=== PATIENT | male | born 1960 | race Caucasian/White ===

== ENCOUNTER 2016-07-02 19:52 | Emergency (ER) | payer OTHER ==
--- NOTE | 2016-07-02 22:51 | ED CLINICAL REPORT ---
Clinical Report - Physicians/Mid Levels [facility] [address] [address] 07/02/2016 19:52 Patient: MIKEY WATT Time Seen: 19:55. Arrived- By ambulance. Historian- patient and EMS personnel. HISTORY OF PRESENT ILLNESS Chief Complaint: CHANGED MENTAL STATUS. The patient has been confused. This started today and is still present. It was gradual in onset. The patient has had alcohol consumption recently. No recent drug use. No weakness or recent fall. He has had difficulty walking (noted to be "staggering"). Usually is alert and oriented X3 and usually has normal mobility. (Pt was brought in by EMS. Pt was found outside of [facility] in a sleeping bag. Pt was intoxicated, whiskey and vodka. Pt is homeless. EMS brought him in because he couldnt stand up. Pt is very dirty. Pt has no medical complaints. Pt is disoriented to time. Pt was in [facility] last night because he was drunk). Similar symptoms previously: Recent medical care: The patient was seen recently at another facility in the emergency department. Diagnosis: intoxication. ( at [facility] last night). REVIEW OF SYSTEMS No fever, headache, head injury, dizziness or chest pain. No difficulty breathing, sputum production, sore throat, abdominal pain or nausea. No diarrhea, black stools, difficulty with urination, vomiting or bloody stools. The patient has had a mild cough. He has had moderate back pain. It has been similar to previous symptoms. PAST HISTORY ( PCP: [facility] Problems: Depression. PTSD. Schizophrenia. Asthma. Prior rib fracture Hypertension Dental problems Alcoholism / Alcohol intoxication Chronic back pain Surgeries: Carpal Tunnel Surgery. Right foot repair). SOCIAL HISTORY Heavy alcohol use. Patient is a longstanding alcoholic. Under the influence in E.D. He is homeless. ADDITIONAL NOTES The nursing notes have been reviewed. PHYSICAL EXAM Vital Signs: 07/02/2016 19:58 BP: 125/58. HR: 119. RR: 24. O2 saturation: 99%. Temp: 98.3 F. Appearance: Lethargic. The patient's speech is slurred and odor of alcohol is present. Head: Head atraumatic. ENT: Normal ENT inspection. Airway intact. Moist mucous membranes. Pharynx normal. Neck: Normal inspection. Neck supple. CVS: Tachycardia. Heart sounds normal. Pulses normal. Respiratory: No respiratory distress. Breath sounds normal. Abdomen: Soft. Mild tenderness in the upper abdomen and left side of the abdomen. No guarding or rebound tenderness. Back: Normal inspection. Skin: Skin warm and dry. Extremities: Extremities exhibit normal ROM. No calf tenderness. Neuro: Alert. Oriented X 3. No motor deficit. No sensory deficit. LABS, X-RAYS, AND EKG Laboratory Tests: UA-Culture if indicated: (CIRA: 07/02/2016 22:15) ( MsgRcvd 07/02/2016 22:31) Final results Test Result Flag Units (Reference) URINE COLOR YELLOW URINE APPEARANCE CLEAR URINE GLUCOSE NEGATIVE (NEGATIVE) URINE BILIRUBIN NEGATIVE (NEGATIVE) URINE KETONE NEGATIVE (NEGATIVE) URINE SPECIFIC GRAVITY 1.015 (1.010-1.030) URINE PH 6.5 (5.0-8.0) URINE PROTEIN TRACE (NEGATIVE) URINE UROBILINOGEN 0.2 EU/dL (0.2-1.0) URINE NITRITE NEGATIVE (NEGATIVE) URINE BLOOD NEGATIVE (NEGATIVE) URINE LEUK ESTERASE NEGATIVE (NEGATIVE) URINE RBC NONE SEEN rbc/hpf (0-1) URINE WBC NONE SEEN wbc/hpf (0-1) URINE EPITHELIAL CELLS 0-1 EPI/hpf (0-5) URINE BACTERIA NONE SEEN (NONE SEEN) URINE COMMENT CULT NOT INDICATED URINE CULTURES ARE SET-UP BASED ON THE FOLLOWING CRITERIA:POSITIVE NITRITEPOSITIVE LEUKOCYTE ESTERASEGREATER THAN 10 WHITE BLOOD CELLSMODERATE (2+) OR GREATER BACTERIA PT with INR: (CIRA: 07/02/2016 20:29) ( MsgRcvd 07/02/2016 20:57) Final results Test Result Flag Units (Reference) INR 1.0 (0.8-1.2) Low Intensity Therapy: INR 1.5-2.0 PT range 18.5-23.1Mod.Intensity Therapy: INR 2.0-3.0 PT range 23.1-31.5High Intensity Therapy: INR 2.5-3.5 PT range 27.4-35.5High Intensity Therapy 2: INR 3.0-4.0 PT range 31.5-39.3 CMP: (CIRA: 07/02/2016 20:43) ( MsgRcvd 07/02/2016 22:48) Final results Test Result Flag Units (Reference) GLUCOSE 137 H mg/dL (70-110) BUN 6 L mg/dL (7-18) CREATININE 0.7 mg/dL (0.6-1.3) Estimated GFR >60 mL/min Estimated GFR- >60 mL/min Note: Persistent reduction over 3 months in eGFR<60 mL/min/1.73 m2 defines CKD. Patients with eGFR values>=60 mL/min/1.73 m2 may also have CKD if evidence ofpersistent proteinuria. Additional information may be foundat www.kidney.org. SODIUM 144 mmol/L (136-145) POTASSIUM 3.8 mmol/L (3.5-5.1) CHLORIDE 104 mmol/L (98-107) CARBON DIOXIDE 26 mmol/L (21-32) CALCIUM 8.6 mg/dL (8.5-10.1) TOTAL PROTEIN 7.5 g/dL (6.4-8.2) ALBUMIN 3.5 g/dL (3.3-5.0) BILIRUBIN, TOTAL 0.6 mg/dL (0.0-1.0) ALKALINE PHOSPHATASE 181 H U/L (46-116) AST (SGOT) 278 H U/L (15-37) ALT (SGPT) 120 H U/L (12-78) Urine Drug Screen: (CIRA: 07/02/2016 22:15) ( MsgRcvd 07/02/2016 22:50) Final results Test Result Flag Units (Reference) AMPHETAMINE/METHAMPHETAMINE POSITIVE H (NEGATIVE) BARBITURATE NEGATIVE (NEGATIVE) BENZODIAZEPINE NEGATIVE (NEGATIVE) CANNABINOID POSITIVE H (NEGATIVE) COCAINE NEGATIVE (NEGATIVE) ECSTASY NEGATIVE (NEGATIVE) METHADONE NEGATIVE (NEGATIVE) OPIATE NEGATIVE (NEGATIVE) The urine drug screen is a qualitative screening test fordrug overdose and abuse. All screen results should beconsidered as presumptive.Drugs screened for are as follows:BenzodiazepinesCocaineAmphetamines/MetamphetaminesTHC (Tetrahydrocannabinol)OpiatesBarbituratesEcstasyMethadonePositive results are unconfirmed. For confirmation, notifythe lab for the specimen to be sent to the reference lab.All confirmations must be performed by a differentmethodology.The ingestion of natural herbal and plant productscontaining Ephedra/Ephedra metabolites can produce in urineone or more substances capable of cross reacting withamphetamine/methamphetamine immunoassays. These testsprovide a preliminary result only. A more specificalternative chemical method must be used to obtain aconfirmed analytical result. BNP: (CIRA: 07/02/2016 20:29) ( IlgRcvd 07/02/2016 21:08) Final results Test Result Flag Units (Reference) B-TYPE NATRIURETIC PEPTIDE < 5.0 L pg/ml (5-100) Lipase: (CIRA: 07/02/2016 20:29) ( IlgRcvd 07/02/2016 21:38) Final results Test Result Flag Units (Reference) LIPASE 353 U/L (73-393) AMYLASE 37 U/L (25-115) ETHYL ALCOHOL 355 H mg/dL (3-10) THYROID STIMULATING HORMONE 3.481 uIU/mL (0.34-3.74) . Pulse Oximetry: 07/02/2016 19:58 O2 saturation: 99%. (FIO2 - room air). Interpretation: normal. PROGRESS AND PROCEDURES Course of Care: 07/02/2016 22:11 BP: 110/55. HR: 76. RR: 16. O2 saturation: 99%. Vital Signs: have been reviewed. Hypotensive. Heart rate normal. Respiratory rate normal. Oxygen saturation normal. Patient/family counseled. Old ED records reviewed. Patient has had multiple ED visits. Disposition: Discharged in good and improved condition. Condition: good. CLINICAL IMPRESSION Abnormal liver function test: AST/SGOT, ALT/SGPT and alkaline phosphatase. Uncomplicated alcohol intoxication with alcohol dependence. INSTRUCTIONS No alcohol. Seek medical help to quit drinking. Follow-up: Screening today revealed the patient's blood pressure to be in the normal range. Follow-up with: [facility], , , [address], , [place], [address] Follow up in about four days. Call for an appointment. (Electronically signed by Manuel Rodriguez Dr. 07/03/2016 4:26) Addenda whit MIKEY WATT VisitID: [id number] Date: 07/02/2016 07/03/2016 2:02 Breathalizer 0.198 at discharge, pt waiting in room for first bus (Electronically signed by Prateek Piper R.N. 07/03/2016 2:02)
--- NOTE | 2016-07-02 22:51 | ED CLINICAL REPORT ---
Clinical Report - Physicians/Mid Levels [facility] [address] [place] [address] 07/02/2016 19:52 Patient: MIKEY WATT Time Seen: 19:55. Arrived- By ambulance. Historian- patient and EMS personnel. HISTORY OF PRESENT ILLNESS Chief Complaint: CHANGED MENTAL STATUS. The patient has been confused. This started today and is still present. It was gradual in onset. The patient has had alcohol consumption recently. No recent drug use. No weakness or recent fall. He has had difficulty walking (noted to be "staggering"). Usually is alert and oriented X3 and usually has normal mobility. (Pt was brought in by EMS. Pt was found outside of [facility] in a sleeping bag. Pt was intoxicated, whiskey and vodka. Pt is homeless. EMS brought him in because he couldnt stand up. Pt is very dirty. Pt has no medical complaints. Pt is disoriented to time. Pt was in [facility] last night because he was drunk). Similar symptoms previously: Recent medical care: The patient was seen recently at another facility in the emergency department. Diagnosis: intoxication. ( at [facility] last night). REVIEW OF SYSTEMS No fever, headache, head injury, dizziness or chest pain. No difficulty breathing, sputum production, sore throat, abdominal pain or nausea. No diarrhea, black stools, difficulty with urination, vomiting or bloody stools. The patient has had a mild cough. He has had moderate back pain. It has been similar to previous symptoms. PAST HISTORY ( PCP: [facility] Problems: Depression. PTSD. Schizophrenia. Asthma. Prior rib fracture Hypertension Dental problems Alcoholism / Alcohol intoxication Chronic back pain Surgeries: Carpal Tunnel Surgery. Right foot repair). SOCIAL HISTORY Heavy alcohol use. Patient is a longstanding alcoholic. Under the influence in E.D. He is homeless. ADDITIONAL NOTES The nursing notes have been reviewed. PHYSICAL EXAM Vital Signs: 07/02/2016 19:58 BP: 125/58. HR: 119. RR: 24. O2 saturation: 99%. Temp: 98.3 F. Appearance: Lethargic. The patient's speech is slurred and odor of alcohol is present. Head: Head atraumatic. ENT: Normal ENT inspection. Airway intact. Moist mucous membranes. Pharynx normal. Neck: Normal inspection. Neck supple. CVS: Tachycardia. Heart sounds normal. Pulses normal. Respiratory: No respiratory distress. Breath sounds normal. Abdomen: Soft. Mild tenderness in the upper abdomen and left side of the abdomen. No guarding or rebound tenderness. Back: Normal inspection. Skin: Skin warm and dry. Extremities: Extremities exhibit normal ROM. No calf tenderness. Neuro: Alert. Oriented X 3. No motor deficit. No sensory deficit. LABS, X-RAYS, AND EKG Laboratory Tests: UA-Culture if indicated: (CIRA: 07/02/2016 22:15) ( MsgRcvd 07/02/2016 22:31) Final results Test Result Flag Units (Reference) URINE COLOR YELLOW URINE APPEARANCE CLEAR URINE GLUCOSE NEGATIVE (NEGATIVE) URINE BILIRUBIN NEGATIVE (NEGATIVE) URINE KETONE NEGATIVE (NEGATIVE) URINE SPECIFIC GRAVITY 1.015 (1.010-1.030) URINE PH 6.5 (5.0-8.0) URINE PROTEIN TRACE (NEGATIVE) URINE UROBILINOGEN 0.2 EU/dL (0.2-1.0) URINE NITRITE NEGATIVE (NEGATIVE) URINE BLOOD NEGATIVE (NEGATIVE) URINE LEUK ESTERASE NEGATIVE (NEGATIVE) URINE RBC NONE SEEN rbc/hpf (0-1) URINE WBC NONE SEEN wbc/hpf (0-1) URINE EPITHELIAL CELLS 0-1 EPI/hpf (0-5) URINE BACTERIA NONE SEEN (NONE SEEN) URINE COMMENT CULT NOT INDICATED URINE CULTURES ARE SET-UP BASED ON THE FOLLOWING CRITERIA:POSITIVE NITRITEPOSITIVE LEUKOCYTE ESTERASEGREATER THAN 10 WHITE BLOOD CELLSMODERATE (2+) OR GREATER BACTERIA PT with INR: (CIRA: 07/02/2016 20:29) ( MsgRcvd 07/02/2016 20:57) Final results Test Result Flag Units (Reference) INR 1.0 (0.8-1.2) Low Intensity Therapy: INR 1.5-2.0 PT range 18.5-23.1Mod.Intensity Therapy: INR 2.0-3.0 PT range 23.1-31.5High Intensity Therapy: INR 2.5-3.5 PT range 27.4-35.5High Intensity Therapy 2: INR 3.0-4.0 PT range 31.5-39.3 CMP: (CIRA: 07/02/2016 20:43) ( MsgRcvd 07/02/2016 22:48) Final results Test Result Flag Units (Reference) GLUCOSE 137 H mg/dL (70-110) BUN 6 L mg/dL (7-18) CREATININE 0.7 mg/dL (0.6-1.3) Estimated GFR >60 mL/min Estimated GFR- >60 mL/min Note: Persistent reduction over 3 months in eGFR<60 mL/min/1.73 m2 defines CKD. Patients with eGFR values>=60 mL/min/1.73 m2 may also have CKD if evidence ofpersistent proteinuria. Additional information may be foundat [email or web address].org. SODIUM 144 mmol/L (136-145) POTASSIUM 3.8 mmol/L (3.5-5.1) CHLORIDE 104 mmol/L (98-107) CARBON DIOXIDE 26 mmol/L (21-32) CALCIUM 8.6 mg/dL (8.5-10.1) TOTAL PROTEIN 7.5 g/dL (6.4-8.2) ALBUMIN 3.5 g/dL (3.3-5.0) BILIRUBIN, TOTAL 0.6 mg/dL (0.0-1.0) ALKALINE PHOSPHATASE 181 H U/L (46-116) AST (SGOT) 278 H U/L (15-37) ALT (SGPT) 120 H U/L (12-78) Urine Drug Screen: (CIRA: 07/02/2016 22:15) ( MsgRcvd 07/02/2016 22:50) Final results Test Result Flag Units (Reference) AMPHETAMINE/METHAMPHETAMINE POSITIVE H (NEGATIVE) BARBITURATE NEGATIVE (NEGATIVE) BENZODIAZEPINE NEGATIVE (NEGATIVE) CANNABINOID POSITIVE H (NEGATIVE) COCAINE NEGATIVE (NEGATIVE) ECSTASY NEGATIVE (NEGATIVE) METHADONE NEGATIVE (NEGATIVE) OPIATE NEGATIVE (NEGATIVE) The urine drug screen is a qualitative screening test fordrug overdose and abuse. All screen results should beconsidered as presumptive.Drugs screened for are as follows:BenzodiazepinesCocaineAmphetamines/MetamphetaminesTHC (Tetrahydrocannabinol)OpiatesBarbituratesEcstasyMethadonePositive results are unconfirmed. For confirmation, notifythe lab for the specimen to be sent to the reference lab.All confirmations must be performed by a differentmethodology.The ingestion of natural herbal and plant productscontaining Ephedra/Ephedra metabolites can produce in urineone or more substances capable of cross reacting withamphetamine/methamphetamine immunoassays. These testsprovide a preliminary result only. A more specificalternative chemical method must be used to obtain aconfirmed analytical result. BNP: (CIRA: 07/02/2016 20:29) ( IlgRcvd 07/02/2016 21:08) Final results Test Result Flag Units (Reference) B-TYPE NATRIURETIC PEPTIDE < 5.0 L pg/ml (5-100) Lipase: (CIRA: 07/02/2016 20:29) ( IlgRcvd 07/02/2016 21:38) Final results Test Result Flag Units (Reference) LIPASE 353 U/L (73-393) AMYLASE 37 U/L (25-115) ETHYL ALCOHOL 355 H mg/dL (3-10) THYROID STIMULATING HORMONE 3.481 uIU/mL (0.34-3.74) . Pulse Oximetry: 07/02/2016 19:58 O2 saturation: 99%. (FIO2 - room air). Interpretation: normal. PROGRESS AND PROCEDURES Course of Care: 07/02/2016 22:11 BP: 110/55. HR: 76. RR: 16. O2 saturation: 99%. Vital Signs: have been reviewed. Hypotensive. Heart rate normal. Respiratory rate normal. Oxygen saturation normal. Patient/family counseled. Old ED records reviewed. Patient has had multiple ED visits. Disposition: Discharged in good and improved condition. Condition: good. CLINICAL IMPRESSION Abnormal liver function test: AST/SGOT, ALT/SGPT and alkaline phosphatase. Uncomplicated alcohol intoxication with alcohol dependence. INSTRUCTIONS No alcohol. Seek medical help to quit drinking. Follow-up: Screening today revealed the patient's blood pressure to be in the normal range. Follow-up with: [facility], , , [address], , [place], [address] Follow up in about four days. Call for an appointment. (Electronically signed by Manuel Rodriguez Dr. 07/03/2016 4:26) Addenda whit MIKEY WATT VisitID: [id number] Date: 07/02/2016 07/03/2016 2:02 Breathalizer 0.198 at discharge, pt waiting in room for first bus (Electronically signed by Prateek Piper R.N. 07/03/2016 2:02)
--- NOTE | 2016-07-02 22:52 | ED ORDER SUMMARY ---
..... Patient: MIKEY WATT OrderSheet [facility] VisitID: [id number] [address] [place] [address] 55y, M Registration Date/Time: 07/02/2016 ORDER SHEET Weight: 99.7 kg (estimated) Allergies: Penicillins GENERAL ORDERS: Tile Inspector (Continuous) (20:18 07/02/2016 PHutchinson DO) (Ack 20:23 LMuller) (21:33 LMuller) Urine Drug Screen Urgent (20:18 07/02/2016 PHutchinson DO) (Ack 20:23 LMuller) (22:18 LMuller) (22:18 DBeyer R.N.) PT with INR Urgent (20:18 07/02/2016 PHutchinson DO) (Ack 20:23 LMuller) (20:31 TLewis R.N.) UA-Culture if indicated Urgent (20:18 07/02/2016 PHutchinson DO) (Ack 20:23 LMuller) (22:18 LMuller) (22:18 DBeyer R.N.) Amylase Urgent (20:18 07/02/2016 PHutchinson DO) (Ack 20:23 LMuller) (20:31 TLewis R.N.) Lipase Urgent (20:18 07/02/2016 PHutchinson DO) (Ack 20:23 LMuller) (20:31 TLewis R.N.) BNP Urgent (20:18 07/02/2016 PHutchinson DO) (Ack 20:23 LMuller) (20:31 TLewis R.N.) Ethyl Alcohol Urgent (20:18 07/02/2016 PHutchinson DO) (Ack 20:23 LMuller) (20:31 TLewis R.N.) TSH Urgent (20:18 07/02/2016 PHutchinson DO) (Ack 20:23 LMuller) (20:31 TLewis R.N.) POC Glucose (20:18 07/02/2016 PHutchinson DO) (Ack 20:23 LMuller) (21:02 DBeyer R.N.) Breathalyzer (20:19 07/02/2016 [facility]) (Ack 20:23 LMuller) (20:23 LMuller) CBC w Diff Urgent (22:28 07/02/2016 [facility]) (Ack 22:31 SBaldwin) (23:00 SBaldwin) CMP Urgent (22:28 07/02/2016 [facility]) (Ack 22:31 SBaldwin) (23:00 SBaldwin) MEDICATION ORDERS: IV FLUIDS: IV NS with Normal Saline 1 Liter, Folic Acid 1 mg/L, Multivitamin Concentrate Intravenous 1 amp/L, Thiamine HCl 100 mg/L: initial bolus 1000 mL (1000 mL/hr), then 125 mL/hr (NOW) (20:18 07/02/2016 [facility]) (20:47 Chris Graves) ORDER SHEET NOTES: [Electronically signed by Prateek Piper R.N. (01:34 07/03/2016)] [Electronically signed by Manuel Rodriguez Dr. (04:26 07/03/2016)] [Electronically locked/signed by Prateek Piper R.N. (01:34 07/03/2016)]
--- NOTE | 2016-07-02 22:52 | ED ORDER SUMMARY ---
..... Patient: MIKEY WATT OrderSheet [facility] VisitID: [id number] [address] [place] [address] 55y, M Registration Date/Time: 07/02/2016 ORDER SHEET Weight: 99.7 kg (estimated) Allergies: Penicillins GENERAL ORDERS: Building Manager (Continuous) (20:18 07/02/2016 PHutchinson DO) (Ack 20:23 LMuller) (21:33 LMuller) Urine Drug Screen Urgent (20:18 07/02/2016 PHutchinson DO) (Ack 20:23 LMuller) (22:18 LMuller) (22:18 DBeyer R.N.) PT with INR Urgent (20:18 07/02/2016 PHutchinson DO) (Ack 20:23 LMuller) (20:31 TLewis R.N.) UA-Culture if indicated Urgent (20:18 07/02/2016 PHutchinson DO) (Ack 20:23 LMuller) (22:18 LMuller) (22:18 DBeyer R.N.) Amylase Urgent (20:18 07/02/2016 PHutchinson DO) (Ack 20:23 LMuller) (20:31 TLewis R.N.) Lipase Urgent (20:18 07/02/2016 PHutchinson DO) (Ack 20:23 LMuller) (20:31 TLewis R.N.) BNP Urgent (20:18 07/02/2016 PHutchinson DO) (Ack 20:23 LMuller) (20:31 TLewis R.N.) Ethyl Alcohol Urgent (20:18 07/02/2016 PHutchinson DO) (Ack 20:23 LMuller) (20:31 TLewis R.N.) TSH Urgent (20:18 07/02/2016 PHutchinson DO) (Ack 20:23 LMuller) (20:31 TLewis R.N.) POC Glucose (20:18 07/02/2016 PHutchinson DO) (Ack 20:23 LMuller) (21:02 DBeyer R.N.) Breathalyzer (20:19 07/02/2016 [facility]) (Ack 20:23 LMuller) (20:23 LMuller) CBC w Diff Urgent (22:28 [facility]02[facility]2016 [facility] (Ack 22:31 SBaldwin) (23:00 SBaldwin) CMP Urgent (22:28 07/02/2016 [facility]) (Ack 22:31 SBaldwin) (23:00 SBaldwin) MEDICATION ORDERS: IV FLUIDS: IV NS with Normal Saline 1 Liter, Folic Acid 1 mg/L, Multivitamin Concentrate Intravenous 1 amp/L, Thiamine HCl 100 mg/L: initial bolus 1000 mL (1000 mL/hr), then 125 mL/hr (NOW) (20:18 07/02/2016 [facility]) (20:47 Chris Graves) ORDER SHEET NOTES: [Electronically signed by Prateek Piper R.N. (01:34 07/03/2016)] [Electronically signed by Manuel Rodriguez Dr. (04:26 07/03/2016)] [Electronically locked/signed by Prateek Piper R.N. (01:34 07/03/2016)]
--- NOTE | 2016-07-02 22:52 | ED NURSING NOTES ---
Clinical Report - Nurses [facility] [place] [address] 07/02/2016 19:52 Patient: MIKEY WATT TRIAGE Triage time 19:58. Acuity: LEVEL 3. Chief Complaint: (ETOH). ( Pt has been given warm blankets and placed in a gown.). --20:06 Phi Geller R.N. 19:58 07/02/16. BP: 125/58. HR: 119. RR: 24. O2 saturation: 99%. Temp: 98.3 F. Pain level now 0/10. --20:06 Phi Geller R.N. Weight: 99.7 kg estimated. Height/Length: 72 inches Estimated. BMI: 29.8. --20:01 Phi Geller R.N. Medications None. --20:02 Phi Geller R.N. Medication/allergy information source: the patient. --20:06 Phi Geller R.N. Allergies Penicillins. --20:01 Phi Geller R.N. History Arrived by EMS. Historian: patient. Unaccompanied. This started today. ( Pt was brought in by EMS. Pt was found outside of [facility] in a sleeping bag. Pt was intoxicated, whiskey and vodka. Pt is homeless. EMS brought him in because he couldnt stand up. Pt is very dirty. Pt has no medical complaints. Pt is disoriented to time. Pt was in [facility] last night because he was drunk.). Treatment [employer]: None. See EMS report. SOCIAL HX: Smoker- current status unknown (pt chews and swallows his tobacco). Heavy alcohol use; consumes a large amount of beer. Patient is a longstanding alcoholic. Patient smells of ETOH in the emergency department. No drug use. --20:06 Phi Geller R.N. PROBLEMS: Contusion. Laceration. Fall. Lifestyle / Substance Problems. Depression. PTSD. Schizophrenia. Asthma. Corneal Foreign Body. Immunizations. Alcoholism. Back Pain. Alcohol Intoxication. Hematoma. Dental Pain. Insect Bite(s). Tetanus Status. Hypertension. Anxiety Reaction. --20:04 Phi Geller R.N. Interventions ID band on patient. To treatment room. --20:06 Phi Geller R.N. PHYSICAL ASSESSMENT GENERAL / NEURO / PSYCH: Appears anxious. The patient is disoriented to time. HEENT: Pupils equal, round and reactive to light. No facial asymmetry noted. Mucous membranes are pink. RESPIRATORY: Respirations not labored. Chest nontender. Breath sounds within normal limits. CVS: Normal sinus rhythm noted. Capillary refill less than 2 seconds. Pulses within normal limits. GI / : Abdomen soft and nontender and normal bowel sounds. SKIN: Skin intact. Skin is warm and dry. Normal skin turgor. Large area of erythema with warmth to right buttock and left buttock. --20:07 Phi Geller R.N. NURSING PROGRESS NOTES ( DANG .258). --20:15 Prateek Piper R.N. 20:36 07/02/2016 Site #1 started via IV in the right hand with an 20g angiocath; one attempt. Blood drawn: rainbow set. Labeled in the presence of the patient. Saline lock flushed with saline. --20:37 Prateek Piper R.N. 20:47 07/02/2016 Started IV Fluids IV NS (Saline); at 1000 mL/hr over 1 hour(s) via site #1 via IV pump. Allergies verified and confirmed 5 rights. IV patency established. IV site checked: no pain, redness, or swelling. IV flushed thoroughly pre- and post-medication administration. --20:47 Phi Geller R.N. ( cbg 138). --21:02 Prateek Piper R.N. Finger stick glucose: 138 21:03 Jul 02 2016. --21:03 Prateek Piper R.N. ( Pt asleep in bed wakes to verbal stimuli). --21:25 Prateek Piper R.N. Call light placed in reach. ( Pt asleep in bed wakes to verbal stimuli.). --22:11 Prateek Piper R.N. 22:11 07/02/16. BP: 110/55. HR: 76. RR: 16. O2 saturation: 99%. Pain level now 0/10. --22:11 Prateek Piper R.N. ( Pt sleeping wakes to verbal stimuli no needs at this time, verbalized understanding of care.). --23:50 Prateek Piper R.N. 23:49 07/02/16. BP: 112/88. HR: 62. RR: 16. O2 saturation: 99%. Pain level now 0/10. --23:50 Prateek Piper R.N. DISPOSITION / DISCHARGE Departure time: 01:32 Jul 03 2016. Condition at departure: improved. Ability to learn limited by poor cooperation. Patient verbalized understanding. Written instructions provided in Cambodian. The patient was discharged by the physician. He was discharged home. He left the Emergency Department ambulatory. Patient driving. ( Pt verbalized understanding of discharge plan). --01:33 Prateek Piper R.N. 01:31 07/03/16. BP: 115/57. HR: 102. RR: 18. O2 saturation: 94%. Temp: 98.3 F. --01:33 Prateek Piper R.N. Locked/Released at 07/03/2016 1:34 by Prateek Piper R.N.
--- NOTE | 2016-07-02 22:52 | ED NURSING NOTES ---
Clinical Report - Nurses [facility] [place] [address] 07/02/2016 19:52 Patient: MIKEY WATT TRIAGE Triage time 19:58. Acuity: LEVEL 3. Chief Complaint: (ETOH). ( Pt has been given warm blankets and placed in a gown.). --20:06 Phi Geller R.N. 19:58 07/02/16. BP: 125/58. HR: 119. RR: 24. O2 saturation: 99%. Temp: 98.3 F. Pain level now 0/10. --20:06 Phi Geller R.N. Weight: 99.7 kg estimated. Height/Length: 72 inches Estimated. BMI: 29.8. --20:01 Phi Geller R.N. Medications None. --20:02 Phi Geller R.N. Medication/allergy information source: the patient. --20:06 Phi Geller R.N. Allergies Penicillins. --20:01 Phi Geller R.N. History Arrived by EMS. Historian: patient. Unaccompanied. This started today. ( Pt was brought in by EMS. Pt was found outside of [facility] in a sleeping bag. Pt was intoxicated, whiskey and vodka. Pt is homeless. EMS brought him in because he couldnt stand up. Pt is very dirty. Pt has no medical complaints. Pt is disoriented to time. Pt was in [facility] last night because he was drunk.). 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 See EMS report. SOCIAL HX: Smoker- current status unknown (pt chews and swallows his tobacco). Heavy alcohol use; consumes a large amount of beer. Patient is a longstanding alcoholic. Patient smells of ETOH in the emergency department. No drug use. --20:06 Phi Geller R.N. PROBLEMS: Contusion. Laceration. Fall. Lifestyle / Substance Problems. Depression. PTSD. Schizophrenia. Asthma. Corneal Foreign Body. Immunizations. Alcoholism. Back Pain. Alcohol Intoxication. Hematoma. Dental Pain. Insect Bite(s). Tetanus Status. Hypertension. Anxiety Reaction. --20:04 Phi Geller R.N. Interventions ID band on patient. To treatment room. --20:06 Phi Geller R.N. PHYSICAL ASSESSMENT GENERAL / NEURO / PSYCH: Appears anxious. The patient is disoriented to time. HEENT: Pupils equal, round and reactive to light. No facial asymmetry noted. Mucous membranes are pink. RESPIRATORY: Respirations not labored. Chest nontender. Breath sounds within normal limits. CVS: Normal sinus rhythm noted. Capillary refill less than 2 seconds. Pulses within normal limits. GI / : Abdomen soft and nontender and normal bowel sounds. SKIN: Skin intact. Skin is warm and dry. Normal skin turgor. Large area of erythema with warmth to right buttock and left buttock. --20:07 Phi Geller R.N. NURSING PROGRESS NOTES ( DANG .258). --20:15 Prateek Piper R.N. 20:36 07/02/2016 Site #1 started via IV in the right hand with an 20g angiocath; one attempt. Blood drawn: rainbow set. Labeled in the presence of the patient. Saline lock flushed with saline. --20:37 Prateek Piper R.N. 20:47 07/02/2016 Started IV Fluids IV NS (Saline); at 1000 mL/hr over 1 hour(s) via site #1 via IV pump. Allergies verified and confirmed 5 rights. IV patency established. IV site checked: no pain, redness, or swelling. IV flushed thoroughly pre- and post-medication administration. --20:47 Phi Geller R.N. ( cbg 138). --21:02 Prateek Piper R.N. Finger stick glucose: 138 21:03 Jul 02 2016. --21:03 Prateek Piper R.N. ( Pt asleep in bed wakes to verbal stimuli). --21:25 Prateek Piper R.N. Call light placed in reach. ( Pt asleep in bed wakes to verbal stimuli.). --22:11 Prateek Piper R.N. 22:11 07/02/16. BP: 110/55. HR: 76. RR: 16. O2 saturation: 99%. Pain level now 0/10. --22:11 Prateek Piper R.N. ( Pt sleeping wakes to verbal stimuli no needs at this time, verbalized understanding of care.). --23:50 Prateek Piper R.N. 23:49 07/02/16. BP: 112/88. HR: 62. RR: 16. O2 saturation: 99%. Pain level now 0/10. --23:50 Prateek Piper R.N. DISPOSITION / DISCHARGE Departure time: 01:32 Jul 03 2016. Condition at departure: improved. Ability to learn limited by poor cooperation. Patient verbalized understanding. Written instructions provided in Iranian. The patient was discharged by the physician. He was discharged home. He left the Emergency Department ambulatory. Patient driving. ( Pt verbalized understanding of discharge plan). --01:33 Prateek Piper R.N. 01:31 07/03/16. BP: 115/57. HR: 102. RR: 18. O2 saturation: 94%. Temp: 98.3 F. --01:33 Prateek Piper R.N. Locked/Released at 07/03/2016 1:34 by Prateek Piper R.N.
--- NOTE | 2016-07-03 04:26 | ED DISCHARGE INSTRUCTIONS ---
Patient: MIKEY WATT General Instructions [facility] VisitID: [id number] [address] [place] [address] 55y, M Registration Date/Time: 07/02/2016 Abnormal liver function test: AST/SGOT, ALT/SGPT and alkaline phosphatase. Uncomplicated alcohol intoxication with alcohol dependence. INSTRUCTIONS No alcohol. Seek medical help to quit drinking. Follow-up: Screening today revealed the patient's blood pressure to be in the normal range. Follow-up with: [facility], , , [address], , [place], [id number] Follow up in about four days. Call for an appointment. ADDITIONAL INFORMATION Cirrhosis Of The Liver The liver is located on the right side of your abdomen, just below the rib cage. The liver performs many essential functions including: Filters toxins from the blood Makes bile to aid digestion and absorption of vitamins from the GI tract Makes clotting factors that stop bleeding if you injure yourself Viral infections and toxins can cause permanent injury to the liver, called CIRRHOSIS. The most common cause of cirrhosis in the [place] is Hepatitis C and alcohol abuse. Other causes include Hepatitis B, medication side effects and others. The scarring that results from cirrhosis interferes with normal liver function and can cause many complications, including: Leakage of fluid from the blood vessels. This can cause pooling of fluid in the abdomen (ascites) or in the legs (edema). Inability of blood to form clots normally. This can lead to excess bleeding. Bleeding from blood vessels in the esophagus. This causes vomiting of blood or blood in the stool. Build-up of bile in the blood which causes a yellow color of the eyes and skin (jaundice). Build-up of toxins in the body which affect the brain and cause confusion. Treatment is aimed at taking care of the symptoms and preventing further liver damage. If your liver damage is from alcohol, quitting will slow the progress of the disease and may prevent further complications. If cirrhosis progresses and becomes life-threatening, liver transplant may be considered. If your liver damage is from Hepatitis B or C, treatments may be given to fight the virus. Home Care: Avoid medicines that can worsen liver damage such as acetaminophen (Tylenol). Your doctor will explain if any of the medicines you now take need to be changed. Talk to you doctor before taking mineral and vitamin supplements. Vitamin A, iron and copper can worsen liver damage. Severely limit alcohol use, or stop altogether. If you are alcoholic, seek professional help. Consider joining Alcoholics Anonymous for ongoing support. If you use IV drugs, you are at risk of Hepatitis B and C. Seek help to stop. The viruses that cause this kind of hepatitis are passed by blood or sexual contact with an infected person. It may even be possible to pass Hepatitis C by sharing straws to snort cocaine. Never share needles or other equipment. Follow Up with your doctor or as advised by our staff. Learn more about your disease and the availability of support groups for others with the same condition. Contact one of the following for more information: [place] [employer] www.liverfoundation.org 183-560-3984 Hepatitis Foundation International www.hepfi.org Get Prompt Medical Attention if any of the following occur: Rapid weight gain with increased size of your abdomen or leg swelling Increasing jaundice (yellow color of skin or eyes) Excess bleeding from cuts or injuries You have been given the following additional information: Cirrhosis (Electronically signed by Manuel Rodriguez Dr. 07/03/2016 4:26)
--- NOTE | 2016-07-03 04:26 | ED MED RECONCILIATION SUMMARY ---
Patient: MIKEY WATT Medication Reconciliation Report [facility] VisitID: [id number] [address] [place] [address] 55y, M Registration Date/Time: 07/02/2016 Weight: 99.7 kg Height/Length: 72 in. BMI: 29.8 ALLERGIES: Penicillins The patient's Home Medications are listed below: NONE. The source(s) of the original Home Medication information: patient The following Medications were given to the patient in the Emergency Department: IV NS IV Fluids bolus 0, then 1000 mL/hr, administered: 07/02/2016 8:47:00 PM The following Medications were prescribed to the patient: None.
--- NOTE | 2016-07-03 04:26 | ED MAR SUMMARY ---
..... Medication Administration Record [facility] [address] [place] [address] Patient: MIKEY WATT Visit ID: [id number] 55y, M Weight: 99.7 kg Height/Length: 72 in BMI: 29.8 ALLERGIES: Penicillins Start 20:47 07/02/2016 Phi Geller R.N. Medication Administered: IV NS (SALINE), Dose: IV Fluids over 1 hour(s), Rate: 1000 mL/hr, Site: #1 right hand. Medication Ordered: IV NS with Normal Saline 1 Liter, Folic Acid 1 mg/L, Multivitamin Concentrate Intravenous 1 amp/L, Thiamine HCl 100 mg/L: initial bolus 1000 mL (1000 mL/hr), then 125 mL/hr (NOW).
--- NOTE | 2016-07-03 04:26 | ED MED RECONCILIATION SUMMARY ---
Patient: MIKEY WATT Medication Reconciliation Report [facility] VisitID: [id number] [address] [place] [address] 55y, M Registration Date/Time: 07/02/2016 Weight: 99.7 kg Height/Length: 72 in. BMI: 29.8 ALLERGIES: Penicillins The patient's Home Medications are listed below: NONE. The source(s) of the original Home Medication information: patient The following Medications were given to the patient in the Emergency Department: IV NS IV Fluids bolus 0, then 1000 mL/hr, administered: 07/02/2016 8:47:00 PM The following Medications were prescribed to the patient: None.
--- NOTE | 2016-07-03 04:26 | ED MAR SUMMARY ---
..... Medication Administration Record [facility] [address] [place] [address] Patient: MIKEY WATT Visit ID: [id number] 55y, M Weight: 99.7 kg Height/Length: 72 in BMI: 29.8 ALLERGIES: Penicillins Start 20:47 07/02/2016 Phi Geller R.N. Medication Administered: IV NS (SALINE), Dose: IV Fluids over 1 hour(s), Rate: 1000 mL/hr, Site: #1 right hand. Medication Ordered: IV NS with Normal Saline 1 Liter, Folic Acid 1 mg/L, Multivitamin Concentrate Intravenous 1 amp/L, Thiamine HCl 100 mg/L: initial bolus 1000 mL (1000 mL/hr), then 125 mL/hr (NOW).
--- NOTE | 2016-07-03 04:26 | ED DISCHARGE INSTRUCTIONS ---
Patient: MIKEY WATT General Instructions [facility] VisitID: [id number] [address] [place] [address] 55y, M Registration Date/Time: 07/02/2016 Abnormal liver function test: AST/SGOT, ALT/SGPT and alkaline phosphatase. Uncomplicated alcohol intoxication with alcohol dependence. INSTRUCTIONS No alcohol. Seek medical help to quit drinking. Follow-up: Screening today revealed the patient's blood pressure to be in the normal range. Follow-up with: [facility], , , [address], , [place], [address] Follow up in about four days. Call for an appointment. ADDITIONAL INFORMATION Cirrhosis Of The Liver The liver is located on the right side of your abdomen, just below the rib cage. The liver performs many essential functions including: Filters toxins from the blood Makes bile to aid digestion and absorption of vitamins from the GI tract Makes clotting factors that stop bleeding if you injure yourself Viral infections and toxins can cause permanent injury to the liver, called CIRRHOSIS. The most common cause of cirrhosis in the [place] is Hepatitis C and alcohol abuse. Other causes include Hepatitis B, medication side effects and others. The scarring that results from cirrhosis interferes with normal liver function and can cause many complications, including: Leakage of fluid from the blood vessels. This can cause pooling of fluid in the abdomen (ascites) or in the legs (edema). Inability of blood to form clots normally. This can lead to excess bleeding. Bleeding from blood vessels in the esophagus. This causes vomiting of blood or blood in the stool. Build-up of bile in the blood which causes a yellow color of the eyes and skin (jaundice). Build-up of toxins in the body which affect the brain and cause confusion. Treatment is aimed at taking care of the symptoms and preventing further liver damage. If your liver damage is from alcohol, quitting will slow the progress of the disease and may prevent further complications. If cirrhosis progresses and becomes life-threatening, liver transplant may be considered. If your liver damage is from Hepatitis B or C, treatments may be given to fight the virus. Home Care: Avoid medicines that can worsen liver damage such as acetaminophen (Tylenol). Your doctor will explain if any of the medicines you now take need to be changed. Talk to you doctor before taking mineral and vitamin supplements. Vitamin A, iron and copper can worsen liver damage. Severely limit alcohol use, or stop altogether. If you are alcoholic, seek professional help. Consider joining Alcoholics Anonymous for ongoing support. If you use IV drugs, you are at risk of Hepatitis B and C. Seek help to stop. The viruses that cause this kind of hepatitis are passed by blood or sexual contact with an infected person. It may even be possible to pass Hepatitis C by sharing straws to snort cocaine. Never share needles or other equipment. Follow Up with your doctor or as advised by our staff. Learn more about your disease and the availability of support groups for others with the same condition. Contact one of the following for more information: [place] [employer] www.liverfoundation.org 228-155-6569 Hepatitis Foundation International www.hepfi.org Get Prompt Medical Attention if any of the following occur: Rapid weight gain with increased size of your abdomen or leg swelling Increasing jaundice (yellow color of skin or eyes) Excess bleeding from cuts or injuries You have been given the following additional information: Cirrhosis (Electronically signed by Manuel Rodriguez Dr. 07/03/2016 4:26)
== END 2016-07-03 01:30 | disposition home or self-care (01) ==
LOC: ED SRH 19:52
DX: R74.8 Abnormal levels of other serum enzymes (principal); F10.220 Alcohol dependence with intoxication, uncomplicated; Y90.8 Blood alcohol level of 240 mg/100 ml or more; Z59.0 Homelessness; I10 Essential (primary) hypertension
CPT/HCPCS: 90004; 90098; 90100; 91320; 92010; 92235; 92530; 92760; 92761; 92762; 92763; 92764; 92765; 92766; 92767; 93140; 94060; 95059

== ENCOUNTER 2016-11-08 17:48 | Emergency (ER) | payer OTHER ==
--- NOTE | 2016-11-08 18:55 | ED NURSING NOTES ---
Clinical Report - Nurses [facility] [place] [place] [address] 11/08/2016 17:48 Patient: MIKEY WATT TRIAGE Triage time 17:50 Jose Rafael 11 2016. Acuity: LEVEL 3. Chief Complaint: ABDOMINAL PAIN. Alert. MELANY COMA SCORE: Melany Coma Scale: 15- eyes open spontaneously (4); best verbal response- oriented x 4 (5); best motor response- obeys commands (6). --18:02 Nikhil Aj R.N. 17:52 11/08/16. BP: 126/64. HR: 110. RR: 18. O2 saturation: 97% on room air. Temp: 98 F. Pain level now: 7/10. Additional comments: RUQ Abd Px. --18:02 Nikhil Aj R.N. Weight: 97.5 kg stated. Height/Length: 72 inches Per Patient. BMI: 29.2. --17:57 Nikhil Aj R.N. Medications Albuterol Sulfate HFA Inhalation. --17:53 Nikhil Aj R.N. Thiamine Oral. --17:53 Nikhil Aj R.N. Allergies No Known Drug Allergy. --17:54 Nikhil Aj R.N. Medication/allergy information source: the patient. --18:02 Nikhil Aj R.N. History Arrived by EMS, and (AID 47). Historian: patient. Accompanied by (EMS). ( RUQ Abdominal Pain. Pt at the local "[facility]" pharmacy and acting irratically. EMS states that pt has hx of ETOH abuse and schizophrenia.). Onset. (about 2 months ago). He has had abdominal pain. 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 PAST MEDICAL HX: Immunizations: up-to-date. SOCIAL HX: Smoker- current status unknown (chews tobacco). Alcohol use; consumes three beers and six liquor daily. Patient is a longstanding alcoholic. History of drug use: marijuana. No recent travel. No infectious disease exposure. ABUSE ASSESSMENT: No report of abuse. FALL RISK ASSESSMENT: Fall risk assessment completed. No fall risk identified. NUTRITIONAL RISK ASSESSMENT: The nutritional risk assessment revealed no deficiencies. FUNCTIONAL ASSESSMENT: Functional assessment: no impairments noted. LEARNING NEEDS ASSESSMENT: The learning needs assessment revealed no barriers. --18:02 Nikhil Aj R.N. PROBLEMS: Abnormal Liver Function Test. Contusion. Laceration. Fall. Lifestyle / Substance Problems. Depression. PTSD. Schizophrenia. Asthma. Corneal Foreign Body. Immunizations. Alcohol Intoxication. Hematoma. Dental Pain. Insect Bite(s). Hypertension. Anxiety Reaction. --17:59 Nikhil Aj R.N. ADDITIONAL SURGERIES: Carpal Tunnel Surgery. Right foot repair. --18:00 Nikhil Aj R.N. Interventions ID band on patient. To room. --18:02 Nikhil Aj R.N. PHYSICAL ASSESSMENT To room via stretcher. GENERAL / NEURO / PSYCH: Alert. Oriented X 4. HEENT: Mucous membranes are pink. RESPIRATORY: Respirations not labored. CVS: Cardiac rhythm: sinus tachycardia. GI / : Abdomen soft. Abdominal tenderness in the right upper quadrant. SKIN: Skin is warm and dry. --18:02 Nikhil Aj R.N. NURSING PROGRESS NOTES Patient gowned. Reassurance given. Patient identifiers checked. Call light placed in reach. Side rails up x 2. Bed placed in lowest position. Brakes of bed on. Patient ready for evaluation- chart flagged and ED physician notified. --18:03 Nikhil Aj R.N. ( Breathalyzer showed .127). --18:10 Nilo Carias, Tech1. DISPOSITION / DISCHARGE Departure time: 1909. --00:20 Nikhil Aj R.N. 19:05 11/08/16. BP: 134/68. HR: 110. RR: 16. O2 saturation: 98% on room air. Temp: 98.4 F. Pain level now: 0/10. --00:23 Nikhil Aj R.N. 19:10. Condition at departure: improved. No learning barriers present. Discharge instructions provided and reviewed with the patient. Reviewed medication(s) (continue your usually prescribed medications). Treatments reviewed (try to stop drinking alcohol). Reviewed referral to worker's compensation for followup. Patient verbalized understanding. Written instructions provided in Kinyarwanda. The patient was discharged by the physician. He was discharged home and accompanied by parent. He left the Emergency Department ambulatory and via private vehicle. Patient driving. --00:28 Nikhil Aj R.N. Locked/Released at 11/09/2016 0:30 by Nikhil Aj R.N.
--- NOTE | 2016-11-08 18:55 | ED CLINICAL REPORT ---
Clinical Report - Physicians/Mid Levels [facility] [address] [place] [address] 11/08/2016 17:48 Patient: MIKEY WATT Time Seen: 17:54. Arrived- By private vehicle. Historian- patient. HISTORY OF PRESENT ILLNESS Chief Complaint: ABDOMINAL PAIN. This started today and is now gone. It is described as "pain" and it is described as located in the right upper quadrant. No nausea, loss of appetite, vomiting or diarrhea. Similar symptoms previously: Recent medical care: Not recently seen/assessed. REVIEW OF SYSTEMS No constipation, black stools, hematemesis, difficulty with urination or pain with urination. No urinary frequency, bloody stools, fever, headache or sore throat. No blurred vision, chest pain, difficulty breathing, cough or joint pain. No skin rash, chills or back pain. All systems otherwise negative, except as recorded above. PAST HISTORY Problems: Abnormal Liver Function Test. Lifestyle / Substance Problems. Depression. PTSD. Schizophrenia. Asthma. Corneal Foreign Body. Immunizations. Alcoholism. Tetanus Status. Hypertension. Anxiety Reaction. Additional Surgeries: Carpal Tunnel Surgery. Right foot repair. Medications: Thiamine Oral. Albuterol Sulfate HFA Inhalation. Allergies: No Known Drug Allergy. SOCIAL HISTORY Smoker- current status unknown. Alcohol use. History of drug use: marijuana. ADDITIONAL NOTES The nursing notes have been reviewed. PHYSICAL EXAM Vital Signs: 11/08/2016 17:52 BP: 126/64. HR: 110. RR: 18. O2 saturation: 97%. Temp: 98 F. Pain level now: 7/10. Have been reviewed. Appearance: Alert. No acute distress. (Patient appears mildly clinically intoxicated, but does answer all questions appropriately.). Eyes: Pupils equal, round and reactive to light. Eyes normal inspection. ENT: Nose normal. Neck: Normal inspection. CVS: Normal heart rate and rhythm. Heart sounds normal. Pulses normal. Respiratory: No respiratory distress. Breath sounds normal. Abdomen: Soft and nontender. Back: Normal inspection. No CVA tenderness. Skin: Skin warm and dry. Normal skin color. No rash. Normal skin turgor. Extremities: Extremities exhibit normal ROM. No lower extremity edema. Neuro: (Patient answers questions appropriately. He is ambulatory without difficulty and without assistance.). LABS, X-RAYS, AND EKG Pulse Oximetry: 11/08/2016 17:52 O2 saturation: 97%. (FIO2 - room air). Interpretation: normal. PROGRESS AND PROCEDURES Course of Care: The patient was mildly clinically intoxicated, but was oriented and ambulatory. He stated that his symptoms were doing better, and that he no longer had abdominal pain. Patient was not found to have any emergent condition and I did feel he was stable for discharge. Patient counseled in person regarding the patient's stable condition, diagnosis and need for follow-up. Concerns were addressed. Old medical records reviewed. Disposition: Discharged. Condition: stable and improved. CLINICAL IMPRESSION Uncomplicated alcohol intoxication with alcohol dependence. INSTRUCTIONS Drink plenty of fluids. Warnings: GENERAL WARNINGS: Return or contact your physician immediately if your condition worsens or changes unexpectedly, if not improving as expected, or if other problems arise. Your Current Medications: CONTINUE TAKING THE FOLLOWING MEDICATIONS: Albuterol Sulfate HFA Inhalation. Thiamine Oral. Follow-up: Follow up with your doctor. Call for the next available appointment. Reason for referral: Assistance getting help with alcohol abuse. Understanding of the discharge instructions verbalized by patient. (Electronically signed by Mary Wolf MD 11/08/2016 21:11)
--- NOTE | 2016-11-08 18:55 | ED NURSING NOTES ---
Clinical Report - Nurses [facility] Susan SJaneth Cannon [address] 11/08/2016 17:48 Patient: MIKEY WATT TRIAGE Triage time 17:50 Jose Rafael 11 2016. Acuity: LEVEL 3. Chief Complaint: ABDOMINAL PAIN. Alert. MELANY COMA SCORE: Melany Coma Scale: 15- eyes open spontaneously (4); best verbal response- oriented x 4 (5); best motor response- obeys commands (6). --18:02 Nikhil Aj R.N. 17:52 11/08/16. BP: 126/64. HR: 110. RR: 18. O2 saturation: 97% on room air. Temp: 98 F. Pain level now: 7/10. Additional comments: RUQ Abd Px. --18:02 Nikhil Aj R.N. Weight: 97.5 kg stated. Height/Length: 72 inches Per Patient. BMI: 29.2. --17:57 Nikhil Aj R.N. Medications Albuterol Sulfate HFA Inhalation. --17:53 Nikhil Aj R.N. Thiamine Oral. --17:53 Nikhil Aj R.N. Allergies No Known Drug Allergy. --17:54 Nikhil Aj R.N. Medication/allergy information source: the patient. --18:02 Nikhil Aj R.N. History Arrived by EMS, and (AID 47). Historian: patient. Accompanied by (EMS). ( RUQ Abdominal Pain. Pt at the local "[facility]" pharmacy and acting irratically. EMS states that pt has hx of ETOH abuse and schizophrenia.). Onset. (about 2 months ago). He has had abdominal pain. 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 PAST MEDICAL HX: Immunizations: up-to-date. SOCIAL HX: Smoker- current status unknown (chews tobacco). Alcohol use; consumes three beers and six liquor daily. Patient is a longstanding alcoholic. History of drug use: marijuana. No recent travel. No infectious disease exposure. ABUSE ASSESSMENT: No report of abuse. FALL RISK ASSESSMENT: Fall risk assessment completed. No fall risk identified. NUTRITIONAL RISK ASSESSMENT: The nutritional risk assessment revealed no deficiencies. FUNCTIONAL ASSESSMENT: Functional assessment: no impairments noted. LEARNING NEEDS ASSESSMENT: The learning needs assessment revealed no barriers. --18:02 Nikhil Aj R.N. PROBLEMS: Abnormal Liver Function Test. Contusion. Laceration. Fall. Lifestyle / Substance Problems. Depression. PTSD. Schizophrenia. Asthma. Corneal Foreign Body. Immunizations. Alcohol Intoxication. Hematoma. Dental Pain. Insect Bite(s). Hypertension. Anxiety Reaction. --17:59 Nikhil Aj R.N. ADDITIONAL SURGERIES: Carpal Tunnel Surgery. Right foot repair. --18:00 Nikhil Aj R.N. Interventions ID band on patient. To room. --18:02 Nikhil Aj R.N. PHYSICAL ASSESSMENT To room via stretcher. GENERAL / NEURO / PSYCH: Alert. Oriented X 4. HEENT: Mucous membranes are pink. RESPIRATORY: Respirations not labored. CVS: Cardiac rhythm: sinus tachycardia. GI / : Abdomen soft. Abdominal tenderness in the right upper quadrant. SKIN: Skin is warm and dry. --18:02 Nikhil Aj R.N. NURSING PROGRESS NOTES Patient gowned. Reassurance given. Patient identifiers checked. Call light placed in reach. Side rails up x 2. Bed placed in lowest position. Brakes of bed on. Patient ready for evaluation- chart flagged and ED physician notified. --18:03 Nikhil Aj R.N. ( Breathalyzer showed .127). --18:10 Nilo Carias, Tech1. DISPOSITION / DISCHARGE Departure time: 1909. --00:20 Nikhil Aj R.N. 19:05 11/08/16. BP: 134/68. HR: 110. RR: 16. O2 saturation: 98% on room air. Temp: 98.4 F. Pain level now: 0/10. --00:23 Nikhil Aj R.N. 19:10. Condition at departure: improved. No learning barriers present. Discharge instructions provided and reviewed with the patient. Reviewed medication(s) (continue your usually prescribed medications). Treatments reviewed (try to stop drinking alcohol). Reviewed referral to worker's compensation for followup. Patient verbalized understanding. Written instructions provided in Hungarian. The patient was discharged by the physician. He was discharged home and accompanied by parent. He left the Emergency Department ambulatory and via private vehicle. Patient driving. --00:28 Nikhil Aj R.N. Locked/Released at 11/09/2016 0:30 by Nikhil Aj R.N.
--- NOTE | 2016-11-09 00:30 | ED MAR SUMMARY ---
..... Medication Administration Record [facility] [address] [place] [id number] Patient: MIKEY WATT Visit ID: [id number] 55y, M Weight: 97.5 kg Height/Length: 72 in BMI: 29.2 ALLERGIES: No Known Drug Allergy
--- NOTE | 2016-11-09 00:30 | ED DISCHARGE INSTRUCTIONS ---
Patient: MIKEY WATT General Instructions [facility] VisitID: [id number] [place] [address] 55y, M Registration Date/Time: 11/08/2016 Uncomplicated alcohol intoxication with alcohol dependence. INSTRUCTIONS Drink plenty of fluids. Warnings: GENERAL WARNINGS: Return or contact your physician immediately if your condition worsens or changes unexpectedly, if not improving as expected, or if other problems arise. Your Current Medications: CONTINUE TAKING THE FOLLOWING MEDICATIONS: Albuterol Sulfate HFA Inhalation. Thiamine Oral. Follow-up: Follow up with your doctor. Call for the next available appointment. Reason for referral: Assistance getting help with alcohol abuse. Understanding of the discharge instructions verbalized by patient. ADDITIONAL INFORMATION Alcohol Intoxication Alcohol intoxication occurs when you drink alcohol faster than your liver can remove it from your system. Alcohol intoxication affects your judgment and coordination. Very high blood alcohol levels can cause coma, very slow breathing and even . If you drink alcohol every day, this may gradually cause permanent damage to your liver, brain, heart, pancreas and other organs. Alcohol use during may cause permanent damage to the growing baby. Home Care: Do not drink any more alcohol. DO NOT DRIVE until all effects of the alcohol have worn off. Get lots of rest over the next few days. Drink plenty of water and other non-alcoholic liquids. Try to eat regular meals. If you have been drinking heavily on a daily basis, you may go through alcohol withdrawl. This is also called the shakes or DTs. The usual symptoms last 3 to 4 days and may include nervousness, shakiness, nausea, sweating or sleeplessness. During this time, it is best that you stay with family or friends who can help and support you. You can also admit yourself to a residential detox program. If your symptoms are severe, contact your doctor for medicines to help. Follow Up: If alcohol is causing a problem in your life, these and other organizations can help you: Alcoholics Anonymous offers support through a self-help fellowship. There are no dues or fees. See the Yellow Pages and call for time and place of meetings. www.aa.org [employer] offers support to families of alcohol users. 827.279.4849 www.al-anon.org National [place] On Alcoholism And Drug Dependence 734-695-1352 www.ncadd.org There are also inpatient or residential alcohol detox programs. Check the Internet or phonebook Yellow Pages under Drug Abuse & Treatment Centers. Get Prompt Medical Attention if any of the following occur: there) You have been given the following additional information: Alcohol Intoxication (Electronically signed by Mary Wolf MD 11/08/2016 21:11)
--- NOTE | 2016-11-09 00:30 | ED MAR SUMMARY ---
..... Medication Administration Record [facility] [address] [place], [place] [id number] Patient: MIKEY WATT Visit ID: [id number] 55y, M Weight: 97.5 kg Height/Length: 72 in BMI: 29.2 ALLERGIES: No Known Drug Allergy
--- NOTE | 2016-11-09 00:30 | ED MED RECONCILIATION SUMMARY ---
Patient: MIKEY WATT Medication Reconciliation Report [facility] VisitID: [id number] [address] [place] [address] 55y, M Registration Date/Time: 11/08/2016 Weight: 97.5 kg Height/Length: 72 in. BMI: 29.2 ALLERGIES: No Known Drug Allergy The patient's Home Medications are listed below: CONTINUE TAKING THE FOLLOWING MEDICATIONS: Albuterol Sulfate HFA Inhalation Thiamine Oral The source(s) of the original Home Medication information: patient The following Medications were given to the patient in the Emergency Department: None. The following Medications were prescribed to the patient: None.
--- NOTE | 2016-11-09 00:30 | ED MED RECONCILIATION SUMMARY ---
Patient: MIKEY WATT Medication Reconciliation Report [facility] VisitID: [id number] [address] [place] [address] 55y, M Registration Date/Time: 11/08/2016 Weight: 97.5 kg Height/Length: 72 in. BMI: 29.2 ALLERGIES: No Known Drug Allergy The patient's Home Medications are listed below: CONTINUE TAKING THE FOLLOWING MEDICATIONS: Albuterol Sulfate HFA Inhalation Thiamine Oral The source(s) of the original Home Medication information: patient The following Medications were given to the patient in the Emergency Department: None. The following Medications were prescribed to the patient: None.
--- NOTE | 2016-11-09 00:30 | ED DISCHARGE INSTRUCTIONS ---
Patient: MIKEY WATT General Instructions [facility] VisitID: [id number] [place] [address] 55y, M Registration Date/Time: 11/08/2016 Uncomplicated alcohol intoxication with alcohol dependence. INSTRUCTIONS Drink plenty of fluids. Warnings: GENERAL WARNINGS: Return or contact your physician immediately if your condition worsens or changes unexpectedly, if not improving as expected, or if other problems arise. Your Current Medications: CONTINUE TAKING THE FOLLOWING MEDICATIONS: Albuterol Sulfate HFA Inhalation. Thiamine Oral. Follow-up: Follow up with your doctor. Call for the next available appointment. Reason for referral: Assistance getting help with alcohol abuse. Understanding of the discharge instructions verbalized by patient. ADDITIONAL INFORMATION Alcohol Intoxication Alcohol intoxication occurs when you drink alcohol faster than your liver can remove it from your system. Alcohol intoxication affects your judgment and coordination. Very high blood alcohol levels can cause coma, very slow breathing and even . If you drink alcohol every day, this may gradually cause permanent damage to your liver, brain, heart, pancreas and other organs. Alcohol use during may cause permanent damage to the growing baby. Home Care: Do not drink any more alcohol. DO NOT DRIVE until all effects of the alcohol have worn off. Get lots of rest over the next few days. Drink plenty of water and other non-alcoholic liquids. Try to eat regular meals. If you have been drinking heavily on a daily basis, you may go through alcohol withdrawl. This is also called the shakes or DTs. The usual symptoms last 3 to 4 days and may include nervousness, shakiness, nausea, sweating or sleeplessness. During this time, it is best that you stay with family or friends who can help and support you. You can also admit yourself to a residential detox program. If your symptoms are severe, contact your doctor for medicines to help. Follow Up: If alcohol is causing a problem in your life, these and other organizations can help you: Alcoholics Anonymous offers support through a self-help fellowship. There are no dues or fees. See the Yellow Pages and call for time and place of meetings. www.aa.org [employer] offers support to families of alcohol users. 256.205.1300 www.al-anon.org National [place] On Alcoholism And Drug Dependence 410-477-0026 www.ncadd.org There are also inpatient or residential alcohol detox programs. Check the Internet or phonebook Yellow Pages under Drug Abuse & Treatment Centers. Get Prompt Medical Attention if any of the following occur: there) You have been given the following additional information: Alcohol Intoxication (Electronically signed by Mary Wolf MD 11/08/2016 21:11)
== END 2016-11-08 19:10 | disposition home or self-care (01) ==
LOC: ED SRH 17:48
DX: F10.220 Alcohol dependence with intoxication, uncomplicated (principal); F20.9 Schizophrenia, unspecified; J45.909 Unspecified asthma, uncomplicated; I10 Essential (primary) hypertension; Z79.899 Other long term (current) drug therapy

== ENCOUNTER 2016-11-20 11:51 | Emergency (ER) | payer OTHER ==
--- NOTE | 2016-11-20 16:49 | ED NURSING NOTES ---
Clinical Report - Nurses [facility] [address] [place] [address] 11/20/2016 11:53 Patient: MIKEY WATT TRIAGE Triage time 12:00 Nov 20 2016. Acuity: LEVEL 2. Chief Complaint: INTOXICATION. Alert. No acute distress. MELANY COMA SCORE: Melany Coma Scale: 14- eyes open spontaneously (4); best verbal response- disoriented (4); best motor response- obeys commands (6). BREATHALYZER: Breathalyzer (.273). --12:42 Alejandra Flores R.N. 12:30 11/20/16. BP: 131/88. HR: 108. RR: 16. O2 saturation: 94%. Temp: 98.5 F. Pain level now: 0/10. --12:42 Alejandra Flores R.N. Weight: 102 kg estimated. Height/Length: 70 inches Estimated. BMI: 32.3. --12:40 Alejandra Flores R.N. Allergies No Known Drug Allergy. --12:33 Alejandra Flores R.N. History Historian: patient. Arrived from home. This occurred today. ( herion withdrawl and etoh intoxication). 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 PAST MEDICAL HX: Immunizations: status is unknown. SOCIAL HX: Heavy alcohol use. History of heavy drug use: methamphetamines, marijuana. No infectious disease exposure. SELF HARM ASSESSMENT: A self harm assessment was performed. Unable to assess the patient in regard to the question "Do you have thoughts of harming or killing yourself?" and "Have you recently had thoughts about harming or killing others?". ABUSE ASSESSMENT: Abuse assessment: The patient was asked "Do you feel safe in your home?". --12:42 Alejandra Folres R.N. PROBLEMS: Abnormal Liver Function Test. Contusion. Laceration. Fall. Lifestyle / Substance Problems. Depression. PTSD. Schizophrenia. Asthma. Corneal Foreign Body. Immunizations. Alcoholism. Back Pain. Alcohol Intoxication. Hematoma. Dental Pain. Insect Bite(s). Tetanus Status. Hypertension. Anxiety Reaction. --12:33 Alejandra Flores R.N. ADDITIONAL SURGERIES: Carpal Tunnel Surgery. Right foot repair. --12:33 Alejandra Flores R.N. Assessment The patient states feels the same. --12:42 Alejandra Flores R.N. Interventions ID band on patient. To room. --12:42 Alejandra Flores R.N. PHYSICAL ASSESSMENT To room via stretcher. GENERAL / NEURO / PSYCH: Alert. Appears in no acute distress. Appears agitated. Behavior appears abnormal: combativeness. The patient is disoriented to time. Altered mental status: combative and disoriented to time. Patient has incoherent responses. Inaccurate responses to questions and inconsistent responses to commands. Patient's speech is slurred. RESPIRATORY: Respirations not labored. CVS: Capillary refill less than 2 seconds. GI / : Abdomen soft. SKIN: Skin is warm and dry. --12:45 Alejandra Flores R.N. NURSING PROGRESS NOTES Patient gowned. Head of bed elevated. Suicide precautions initiated. Restraints applied and see restraint documentation. ED Physician has been notified. Order of Protective Custody initiated. Patient identifiers checked. Side rails up x 2. Bed placed in lowest position. Brakes of bed on. --12:46 Alejandra Flores R.N. 14:00 11/20/16. The patient is resting quietly. Overall patient status is the same- he states feels the same. ( ice water and urinal provided to patient.). GENERAL / NEURO / PSYCH: Alert. Behavior appears abnormal: (- improving). RESPIRATORY: No respiratory distress. GI / : No vomiting noted. SKIN: Skin is warm and dry. --14:10 Alejandra Flores R.N. 14:07 11/20/16. BP: 134/86. HR: 109. RR: 16. O2 saturation: 94%. --14:10 Alejandra Flores R.N. The patient reports no complaints and he is calm and resting quietly. ( pt cooperative with care. no complaints at this time.). GENERAL / NEURO / PSYCH: Patient is calm and cooperative. Alert. RESPIRATORY: No respiratory distress. SKIN: Skin is warm and dry. Skin color within normal limits. --17:09 Alejandra Flores R.N. Restraint Flowsheet Initial restraint assessment. He has demonstrated violent and non-violent behavior including imminent risk of harm to others and inability to follow directions that requires restraints. Alternatives to restraints have been attempted via reality orientation by frequent reminding; assessment for possible underlying medical problem. Alternative to restraints failed: patient inability to follow directions, behavior requiring restraints has not changed, remains agitated and displaying a lack of decision making ability. Applied right and left wrist restraints and right and left ankle restraints anchored to the stretcher base. (wrist and ankles). Observed by electronic monitor. Assessment: airway- patent; circulation- capillary refill is less than 2 seconds; mental status- patient is agitated and confused; skin- intact; behavior is violent. Restraints are properly applied. --12:49 Alejandra Flores R.N. DISPOSITION / DISCHARGE Departure time: 17:Nov 20 2016. Condition at departure: improved. No learning barriers present. Reviewed referral to a primary care physician for followup. Patient verbalized understanding. Written instructions provided in Upper Sorbian. Discharge instructions not provided and reviewed with the patient. The patient was discharged home. He left the Emergency Department ambulatory and via bus. ( pt provided bus ticket.). FALL RISK ASSESSMENT: Fall risk assessment completed. No fall risk identified. --17:08 Alejandra Flores R.N. 17:07 11/20/16. BP: 159/117. HR: 113. RR: 20. O2 saturation: 96%. Pain level now: 0/10. --17:08 Alejandra Flores R.N. Locked/Released at 11/24/2016 10:57 by Alejandra Flores R.N.
--- NOTE | 2016-11-20 16:49 | ED NURSING NOTES ---
Clinical Report - Nurses [facility] [address] [place] [address] 11/20/2016 11:53 Patient: MIKEY WATT TRIAGE Triage time 12:00 Nov 20 2016. Acuity: LEVEL 2. Chief Complaint: INTOXICATION. Alert. No acute distress. MELANY COMA SCORE: Melany Coma Scale: 14- eyes open spontaneously (4); best verbal response- disoriented (4); best motor response- obeys commands (6). BREATHALYZER: Breathalyzer (.273). --12:42 Alejandra Flores R.N. 12:30 11/20/16. BP: 131/88. HR: 108. RR: 16. O2 saturation: 94%. Temp: 98.5 F. Pain level now: 0/10. --12:42 Alejandra Flores R.N. Weight: 102 kg estimated. Height/Length: 70 inches Estimated. BMI: 32.3. --12:40 Alejandra Flores R.N. Allergies No Known Drug Allergy. --12:33 Alejandra Flores R.N. History Historian: patient. Arrived from home. This occurred today. ( herion withdrawl and etoh intoxication). 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 PAST MEDICAL HX: Immunizations: status is unknown. SOCIAL HX: Heavy alcohol use. History of heavy drug use: methamphetamines, marijuana. No infectious disease exposure. SELF HARM ASSESSMENT: A self harm assessment was performed. Unable to assess the patient in regard to the question "Do you have thoughts of harming or killing yourself?" and "Have you recently had thoughts about harming or killing others?". ABUSE ASSESSMENT: Abuse assessment: The patient was asked "Do you feel safe in your home?". --12:42 Alejandra Flores R.N. PROBLEMS: Abnormal Liver Function Test. Contusion. Laceration. Fall. Lifestyle / Substance Problems. Depression. PTSD. Schizophrenia. Asthma. Corneal Foreign Body. Immunizations. Alcoholism. Back Pain. Alcohol Intoxication. Hematoma. Dental Pain. Insect Bite(s). Tetanus Status. Hypertension. Anxiety Reaction. --12:33 Alejandra Flores R.N. ADDITIONAL SURGERIES: Carpal Tunnel Surgery. Right foot repair. --12:33 Alejandra Flores R.N. Assessment The patient states feels the same. --12:42 Alejandra Flores R.N. Interventions ID band on patient. To room. --12:42 Alejandra Flores R.N. PHYSICAL ASSESSMENT To room via stretcher. GENERAL / NEURO / PSYCH: Alert. Appears in no acute distress. Appears agitated. Behavior appears abnormal: combativeness. The patient is disoriented to time. Altered mental status: combative and disoriented to time. Patient has incoherent responses. Inaccurate responses to questions and inconsistent responses to commands. Patient's speech is slurred. RESPIRATORY: Respirations not labored. CVS: Capillary refill less than 2 seconds. GI / : Abdomen soft. SKIN: Skin is warm and dry. --12:45 Alejandra Flores R.N. NURSING PROGRESS NOTES Patient gowned. Head of bed elevated. Suicide precautions initiated. Restraints applied and see restraint documentation. ED Physician has been notified. Order of Protective Custody initiated. Patient identifiers checked. Side rails up x 2. Bed placed in lowest position. Brakes of bed on. --12:46 Alejandra Flores R.N. 14:00 11/20/16. The patient is resting quietly. Overall patient status is the same- he states feels the same. ( ice water and urinal provided to patient.). GENERAL / NEURO / PSYCH: Alert. Behavior appears abnormal: (- improving). RESPIRATORY: No respiratory distress. GI / : No vomiting noted. SKIN: Skin is warm and dry. --14:10 Alejandra Flores R.N. 14:07 11/20/16. BP: 134/86. HR: 109. RR: 16. O2 saturation: 94%. --14:10 Alejandra Flores R.N. The patient reports no complaints and he is calm and resting quietly. ( pt cooperative with care. no complaints at this time.). GENERAL / NEURO / PSYCH: Patient is calm and cooperative. Alert. RESPIRATORY: No respiratory distress. SKIN: Skin is warm and dry. Skin color within normal limits. --17:09 Alejandra Flores R.N. Restraint Flowsheet Initial restraint assessment. He has demonstrated violent and non-violent behavior including imminent risk of harm to others and inability to follow directions that requires restraints. Alternatives to restraints have been attempted via reality orientation by frequent reminding; assessment for possible underlying medical problem. Alternative to restraints failed: patient inability to follow directions, behavior requiring restraints has not changed, remains agitated and displaying a lack of decision making ability. Applied right and left wrist restraints and right and left ankle restraints anchored to the stretcher base. (wrist and ankles). Observed by electronic monitor. Assessment: airway- patent; circulation- capillary refill is less than 2 seconds; mental status- patient is agitated and confused; skin- intact; behavior is violent. Restraints are properly applied. --12:49 Alejandra Flores R.N. DISPOSITION / DISCHARGE Departure time: 17:Nov 20 2016. Condition at departure: improved. No learning barriers present. Reviewed referral to a primary care physician for followup. Patient verbalized understanding. Written instructions provided in Persian. Discharge instructions not provided and reviewed with the patient. The patient was discharged home. He left the Emergency Department ambulatory and via bus. ( pt provided bus ticket.). FALL RISK ASSESSMENT: Fall risk assessment completed. No fall risk identified. --17:08 Alejandra Flores R.N. 17:07 11/20/16. BP: 159/117. HR: 113. RR: 20. O2 saturation: 96%. Pain level now: 0/10. --17:08 Alejandra Flores R.N. Locked/Released at 11/24/2016 10:57 by Alejandra Flores R.N.
--- NOTE | 2016-11-20 16:49 | ED ORDER SUMMARY ---
..... Patient: MIKEY WATT OrderSheet [facility] VisitID: [id number] [place] [address] 55y, M Registration Date/Time: 11/20/2016 ORDER SHEET Weight: 102.0 kg (estimated) Allergies: No Known Drug Allergy GENERAL ORDERS: Urine Drug Screen Urgent (13:11/20/2016 Yu Coyne) (Ack 13:07 Lynn) Breathalyzer (13:11/20/2016 Yu Coyne) (13:07 Lynn) MEDICATION ORDERS: IV FLUIDS: ORDER SHEET NOTES: [Electronically signed by Manuel Rodriguez Dr. (17:50 11/20/2016)] [Electronically signed by Alejandra Flores R.N. (10:57 11/24/2016)] [Electronically locked/signed by Alejandra Flores R.N. (10:57 11/24/2016)]
--- NOTE | 2016-11-20 16:49 | ED CLINICAL REPORT ---
Clinical Report - Physicians/Mid Levels [facility] [address] [place] [address] 11/20/2016 11:53 Patient: MIKEY WATT Time Seen: 11:58; initial patient contact. Arrived- By ambulance. Historian- patient. HISTORY OF PRESENT ILLNESS Chief Complaint: INTOXICATED. Wants to stop drinking. Wants to enter detox program. Symptoms started today. Substances abused: Alcohol. Last drink just prior to arrival. Last drug use consisted of amphetamines 3 weeks ago. No nausea, vomiting, abdominal pain, tremors or seizure. No delusions, hallucinations or suicidal thoughts. Not confused or paranoid. He has been agitated. Has not been depressed. The symptoms are described as moderate. No injuries noted. Similar symptoms previously: Many times. Recent medical care: Not recently seen/assessed. REVIEW OF SYSTEMS No headache, dizziness, weakness or difficulty breathing. All systems otherwise negative, except as recorded above. PAST HISTORY Abnormal Liver Function Test. Contusion. Laceration. Fall. Lifestyle / Substance Problems. Depression. PTSD. Schizophrenia. Asthma. Corneal Foreign Body. Immunizations. Alcoholism. Back Pain. Alcohol Intoxication. Hematoma. Dental Pain. Insect Bite(s). Tetanus Status. Hypertension. Anxiety Reaction. ADDITIONAL SURGERIES: Carpal Tunnel Surgery. Right foot repair. -. SOCIAL HISTORY Never smoker. Heavy alcohol use. Patient is a longstanding alcoholic. Under the influence in E.D. History of drug use: marijuana. ADDITIONAL NOTES The nursing notes have been reviewed. PHYSICAL EXAM Vital Signs: 11/20/2016 12:30 BP: 131/88. HR: 108. RR: 16. O2 saturation: 94%. Temp: 98.5 F. Pain level now: 0/10. Have been reviewed. Blood pressure normal. Tachycardic. Respiratory rate normal. Temperature normal. Oxygen saturation low. Appearance: The patient's speech is slurred, the patient is agitated and odor of alcohol is present. Head: Head atraumatic. ENT: Normal ENT inspection. Airway intact. Moist mucous membranes. CVS: Tachycardia. Heart sounds normal. Rhythm normal. Respiratory: No respiratory distress. Breath sounds normal. Abdomen: Soft and nontender. No organomegaly. Skin: Skin warm and dry. Normal skin color. No rash. Extremities: No lower extremity edema. Neuro: Alert. Oriented X 3. LABS, X-RAYS, AND EKG Laboratory Tests: Urine Drug Screen: (CIRA: 11/20/2016 15:00) ( MsgRcvd 11/20/2016 15:35) Final results Test Result Flag Units (Reference) AMPHETAMINE/METHAMPHETAMINE NEGATIVE (NEGATIVE) BARBITURATE NEGATIVE (NEGATIVE) BENZODIAZEPINE NEGATIVE (NEGATIVE) CANNABINOID POSITIVE H (NEGATIVE) COCAINE NEGATIVE (NEGATIVE) ECSTASY NEGATIVE (NEGATIVE) METHADONE NEGATIVE (NEGATIVE) OPIATE NEGATIVE (NEGATIVE) The urine drug screen is a qualitative screening test fordrug overdose and abuse. All screen results should beconsidered as presumptive.Drugs screened for are as follows:BenzodiazepinesCocaineAmphetamines/MetamphetaminesTHC (Tetrahydrocannabinol)OpiatesBarbituratesEcstasyMethadonePositive results are unconfirmed. For confirmation, notifythe lab for the specimen to be sent to the reference lab.All confirmations must be performed by a differentmethodology.The ingestion of natural herbal and plant productscontaining Ephedra/Ephedra metabolites can produce in urineone or more substances capable of cross reacting withamphetamine/methamphetamine immunoassays. These testsprovide a preliminary result only. A more specificalternative chemical method must be used to obtain aconfirmed analytical result. . PROGRESS AND PROCEDURES Course of Care: Pt is going to outpt EtOH Tx tomorrow. Disposition: Discharged home in good and improved condition. Condition: good. CLINICAL IMPRESSION Uncomplicated alcohol intoxication with alcohol dependence. INSTRUCTIONS No alcohol. Seek medical help to quit drinking. Follow-up: Screening today revealed the patient's blood pressure to be in the pre-hypertensive range. The patient should follow up with a primary care provider for blood pressure management. Follow-up with: [facility], , , [address], , [place], [id number] Follow up in about three days. Call for an appointment. (Electronically signed by Manuel Rodriguez Dr. 11/20/2016 17:50)
--- NOTE | 2016-11-20 16:49 | ED ORDER SUMMARY ---
..... Patient: MIKEY WATT OrderSheet [facility] VisitID: [id number] [place] [address] 55y, M Registration Date/Time: 11/20/2016 ORDER SHEET Weight: 102.0 kg (estimated) Allergies: No Known Drug Allergy GENERAL ORDERS: Urine Drug Screen Urgent (13:11/20/2016 Yu Coyne) (Ack 13:07 Lynn) Breathalyzer (13:11/20/2016 Yu Coyne) (13:07 Lynn) MEDICATION ORDERS: IV FLUIDS: ORDER SHEET NOTES: [Electronically signed by Manuel Rodriguez Dr. (17:50 11/20/2016)] [Electronically signed by Alejandra Flores R.N. (10:57 11/24/2016)] [Electronically locked/signed by Alejandra Flores R.N. (10:57 11/24/2016)]
--- NOTE | 2016-11-20 16:49 | ED CLINICAL REPORT ---
Clinical Report - Physicians/Mid Levels [facility] [address] [place] [address] 11/20/2016 11:53 Patient: MIKEY WATT Time Seen: 11:58; initial patient contact. Arrived- By ambulance. Historian- patient. HISTORY OF PRESENT ILLNESS Chief Complaint: INTOXICATED. Wants to stop drinking. Wants to enter detox program. Symptoms started today. Substances abused: Alcohol. Last drink just prior to arrival. Last drug use consisted of amphetamines 3 weeks ago. No nausea, vomiting, abdominal pain, tremors or seizure. No delusions, hallucinations or suicidal thoughts. Not confused or paranoid. He has been agitated. Has not been depressed. The symptoms are described as moderate. No injuries noted. Similar symptoms previously: Many times. Recent medical care: Not recently seen/assessed. REVIEW OF SYSTEMS No headache, dizziness, weakness or difficulty breathing. All systems otherwise negative, except as recorded above. PAST HISTORY Abnormal Liver Function Test. Contusion. Laceration. Fall. Lifestyle / Substance Problems. Depression. PTSD. Schizophrenia. Asthma. Corneal Foreign Body. Immunizations. Alcoholism. Back Pain. Alcohol Intoxication. Hematoma. Dental Pain. Insect Bite(s). Tetanus Status. Hypertension. Anxiety Reaction. ADDITIONAL SURGERIES: Carpal Tunnel Surgery. Right foot repair. -. SOCIAL HISTORY Never smoker. Heavy alcohol use. Patient is a longstanding alcoholic. Under the influence in E.D. History of drug use: marijuana. ADDITIONAL NOTES The nursing notes have been reviewed. PHYSICAL EXAM Vital Signs: 11/20/2016 12:30 BP: 131/88. HR: 108. RR: 16. O2 saturation: 94%. Temp: 98.5 F. Pain level now: 0/10. Have been reviewed. Blood pressure normal. Tachycardic. Respiratory rate normal. Temperature normal. Oxygen saturation low. Appearance: The patient's speech is slurred, the patient is agitated and odor of alcohol is present. Head: Head atraumatic. ENT: Normal ENT inspection. Airway intact. Moist mucous membranes. CVS: Tachycardia. Heart sounds normal. Rhythm normal. Respiratory: No respiratory distress. Breath sounds normal. Abdomen: Soft and nontender. No organomegaly. Skin: Skin warm and dry. Normal skin color. No rash. Extremities: No lower extremity edema. Neuro: Alert. Oriented X 3. LABS, X-RAYS, AND EKG Laboratory Tests: Urine Drug Screen: (CIRA: 11/20/2016 15:00) ( MsgRcvd 11/20/2016 15:35) Final results Test Result Flag Units (Reference) AMPHETAMINE/METHAMPHETAMINE NEGATIVE (NEGATIVE) BARBITURATE NEGATIVE (NEGATIVE) BENZODIAZEPINE NEGATIVE (NEGATIVE) CANNABINOID POSITIVE H (NEGATIVE) COCAINE NEGATIVE (NEGATIVE) ECSTASY NEGATIVE (NEGATIVE) METHADONE NEGATIVE (NEGATIVE) OPIATE NEGATIVE (NEGATIVE) The urine drug screen is a qualitative screening test fordrug overdose and abuse. All screen results should beconsidered as presumptive.Drugs screened for are as follows:BenzodiazepinesCocaineAmphetamines/MetamphetaminesTHC (Tetrahydrocannabinol)OpiatesBarbituratesEcstasyMethadonePositive results are unconfirmed. For confirmation, notifythe lab for the specimen to be sent to the reference lab.All confirmations must be performed by a differentmethodology.The ingestion of natural herbal and plant productscontaining Ephedra/Ephedra metabolites can produce in urineone or more substances capable of cross reacting withamphetamine/methamphetamine immunoassays. These testsprovide a preliminary result only. A more specificalternative chemical method must be used to obtain aconfirmed analytical result. . PROGRESS AND PROCEDURES Course of Care: Pt is going to outpt EtOH Tx tomorrow. Disposition: Discharged home in good and improved condition. Condition: good. CLINICAL IMPRESSION Uncomplicated alcohol intoxication with alcohol dependence. INSTRUCTIONS No alcohol. Seek medical help to quit drinking. Follow-up: Screening today revealed the patient's blood pressure to be in the pre-hypertensive range. The patient should follow up with a primary care provider for blood pressure management. Follow-up with: [facility], , , [address], , [place], [address] Follow up in about three days. Call for an appointment. (Electronically signed by Manuel Rodriguez Dr. 11/20/2016 17:50)
--- NOTE | 2016-11-24 10:58 | ED MED RECONCILIATION SUMMARY ---
Patient: MIKEY WATT Medication Reconciliation Report [facility] VisitID: [id number] [address] [place] [address] 55y, M Registration Date/Time: 11/20/2016 Weight: 102.0 kg Height/Length: 70 in. BMI: 32.3 ALLERGIES: No Known Drug Allergy The patient's Home Medications are listed below: Not obtained. The source(s) of the original Home Medication information: Not obtained. The following Medications were given to the patient in the Emergency Department: None. The following Medications were prescribed to the patient: None.
--- NOTE | 2016-11-24 10:58 | ED MAR SUMMARY ---
..... Medication Administration Record [facility] [address] [place] [id number] Patient: MIKEY WATT Visit ID: [id number] 55y, M Weight: 102.0 kg Height/Length: 70 in BMI: 32.3 ALLERGIES: No Known Drug Allergy
--- NOTE | 2016-11-24 10:58 | ED DISCHARGE INSTRUCTIONS ---
Patient: MIKEY WATT General Instructions [facility] VisitID: [id number] [address] [place] [address] 55y, M Registration Date/Time: 11/20/2016 Uncomplicated alcohol intoxication with alcohol dependence. INSTRUCTIONS No alcohol. Seek medical help to quit drinking. Follow-up: Screening today revealed the patient's blood pressure to be in the pre-hypertensive range. The patient should follow up with a primary care provider for blood pressure management. Follow-up with: [facility], , , [address], , [place], [id number] Follow up in about three days. Call for an appointment. ADDITIONAL INFORMATION Alcohol Intoxication Alcohol intoxication occurs when you drink alcohol faster than your liver can remove it from your system. Alcohol intoxication affects your judgment and coordination. Very high blood alcohol levels can cause coma, very slow breathing and even . If you drink alcohol every day, this may gradually cause permanent damage to your liver, brain, heart, pancreas and other organs. Alcohol use during may cause permanent damage to the growing baby. Home Care: Do not drink any more alcohol. DO NOT DRIVE until all effects of the alcohol have worn off. Get lots of rest over the next few days. Drink plenty of water and other non-alcoholic liquids. Try to eat regular meals. If you have been drinking heavily on a daily basis, you may go through alcohol withdrawl. This is also called the shakes or DTs. The usual symptoms last 3 to 4 days and may include nervousness, shakiness, nausea, sweating or sleeplessness. During this time, it is best that you stay with family or friends who can help and support you. You can also admit yourself to a residential detox program. If your symptoms are severe, contact your doctor for medicines to help. Follow Up: If alcohol is causing a problem in your life, these and other organizations can help you: Alcoholics Anonymous offers support through a self-help fellowship. There are no dues or fees. See the Yellow Pages and call for time and place of meetings. www.aa.org [place] offers support to families of alcohol users. 420.565.9011 www.al-anon.org National [place] On Alcoholism And Drug Dependence 624-708-3832 www.ncadd.org There are also inpatient or residential alcohol detox programs. Check the Internet or phonebook Yellow Pages under Drug Abuse & Treatment Centers. Get Prompt Medical Attention if any of the following occur: there) You have been given the following additional information: Alcohol Intoxication (Electronically signed by Manuel Rodriguez Dr. 11/20/2016 17:50)
--- NOTE | 2016-11-24 10:58 | ED MED RECONCILIATION SUMMARY ---
Patient: MIKEY WATT Medication Reconciliation Report [facility] VisitID: [id number] [address] [place] [address] 55y, M Registration Date/Time: 11/20/2016 Weight: 102.0 kg Height/Length: 70 in. BMI: 32.3 ALLERGIES: No Known Drug Allergy The patient's Home Medications are listed below: Not obtained. The source(s) of the original Home Medication information: Not obtained. The following Medications were given to the patient in the Emergency Department: None. The following Medications were prescribed to the patient: None.
--- NOTE | 2016-11-24 10:58 | ED DISCHARGE INSTRUCTIONS ---
Patient: MIKEY WATT General Instructions [facility] VisitID: [id number] [address] [place] [address] 55y, M Registration Date/Time: 11/20/2016 Uncomplicated alcohol intoxication with alcohol dependence. INSTRUCTIONS No alcohol. Seek medical help to quit drinking. Follow-up: Screening today revealed the patient's blood pressure to be in the pre-hypertensive range. The patient should follow up with a primary care provider for blood pressure management. Follow-up with: [facility], , , [address], , [place], [address] Follow up in about three days. Call for an appointment. ADDITIONAL INFORMATION Alcohol Intoxication Alcohol intoxication occurs when you drink alcohol faster than your liver can remove it from your system. Alcohol intoxication affects your judgment and coordination. Very high blood alcohol levels can cause coma, very slow breathing and even . If you drink alcohol every day, this may gradually cause permanent damage to your liver, brain, heart, pancreas and other organs. Alcohol use during may cause permanent damage to the growing baby. Home Care: Do not drink any more alcohol. DO NOT DRIVE until all effects of the alcohol have worn off. Get lots of rest over the next few days. Drink plenty of water and other non-alcoholic liquids. Try to eat regular meals. If you have been drinking heavily on a daily basis, you may go through alcohol withdrawl. This is also called the shakes or DTs. The usual symptoms last 3 to 4 days and may include nervousness, shakiness, nausea, sweating or sleeplessness. During this time, it is best that you stay with family or friends who can help and support you. You can also admit yourself to a residential detox program. If your symptoms are severe, contact your doctor for medicines to help. Follow Up: If alcohol is causing a problem in your life, these and other organizations can help you: Alcoholics Anonymous offers support through a self-help fellowship. There are no dues or fees. See the Yellow Pages and call for time and place of meetings. www.aa.org [place] offers support to families of alcohol users. 443.526.8624 www.al-anon.org National [place] On Alcoholism And Drug Dependence 237-298-6287 www.ncadd.org There are also inpatient or residential alcohol detox programs. Check the Internet or phonebook Yellow Pages under Drug Abuse & Treatment Centers. Get Prompt Medical Attention if any of the following occur: there) You have been given the following additional information: Alcohol Intoxication (Electronically signed by Manuel Rodriguez Dr. 11/20/2016 17:50)
--- NOTE | 2016-11-24 10:58 | ED MAR SUMMARY ---
..... Medication Administration Record [facility] [address] [place], [place] [id number] Patient: MIKEY WATT Visit ID: [id number] 55y, M Weight: 102.0 kg Height/Length: 70 in BMI: 32.3 ALLERGIES: No Known Drug Allergy
== END 2016-11-20 17:00 | disposition home or self-care (01) ==
LOC: ED SRH 11:51
DX: F10.220 Alcohol dependence with intoxication, uncomplicated (principal); I10 Essential (primary) hypertension
CPT/HCPCS: 92760; 92761; 92762; 92763; 92764; 92765; 92766; 92767

== ENCOUNTER 2016-11-21 23:01 | Emergency (ER) | payer OTHER ==
--- NOTE | 2016-11-22 15:50 | ED CLINICAL REPORT ---
Clinical Report - Physicians/Mid Levels [facility] [address] [place] [address] 11/21/2016 23:03 Patient: MIKEY WATT Time Seen: 00:29 Nov 22 2016. Arrived- By ambulance. Historian- EMS personnel and police. HISTORY OF PRESENT ILLNESS Chief Complaint: SUICIDAL THOUGHTS, PSYCHIATRIC EVALUATION REQUESTED and WANTS TO STOP DRINKING (Intoxicated.), VIOLENT BEHAVIOR and Pt violent with police until placed in handcuffs. This started just prior to arrival. ([place]. Pt called police himself. Was seen yesterday by same officer and was also intoxicated and taken to [place].). The patient has exhibited a behavior change. Recent alcohol consumption. The patient has had anxiety. Has been depressed and had suicidal thoughts. No self-injury inflicted. The symptoms are described as moderate. No injury is present. REVIEW OF SYSTEMS No headache, dizziness, weakness, chest pain or palpitations. No abdominal pain, vomiting, diarrhea, fever or sore throat. No cough, difficulty breathing, skin rash or enlarged lymph nodes. All systems otherwise negative, except as recorded above. PAST HISTORY ( alcohol abuse Ankle fracture Asthma Cirrhosis of the liver Depression History of bacteremia Homeless Polysubstance abuse PTSD Paranoid schizophrenia). Psychiatric illness. SOCIAL HISTORY Heavy alcohol use. ADDITIONAL NOTES The nursing notes have been reviewed. PHYSICAL EXAM Vital Signs: 11/21/2016 23:17 BP: 140/80. HR: 113. RR: 18. O2 saturation: 94%. Temp: 97.8 F. Pain level now: 0/10. Appearance: Patient is in mild distress. Is disheveled and has poor hygiene. ( intoxicated). (intoxicated and lethargic). Eyes: Pupils equal, round and reactive to light. Neck: Normal inspection. Neck supple. CVS: Normal heart rate and rhythm. Heart sounds normal. Respiratory: Breath sounds normal. Chest nontender. Abdomen: Soft and nontender. Back: No tenderness. Skin: Skin warm. Normal skin color. Extremities: Extremities exhibit normal ROM. Psych / Neuro: Blunted affect. Cognition normal. Thought process and content normal. Insight and judgement normal. Cranial nerves normal (as tested). Finger-nose test abnormal. Abnormal gait. No motor deficit. No sensory deficit. Reflexes normal. LABS, X-RAYS, AND EKG Laboratory Tests: CBC w Diff: (CIRA: 11/22/2016 00:01) ( MsgRcvd 11/22/2016 00:42) Final results Test Result Flag Units (Reference) WHITE BLOOD COUNT 6.5 K/uL (4.5-11.5) RED BLOOD COUNT 4.09 L M/uL (4.50-5.90) HEMOGLOBIN 13.2 L gm/dL (13.5-17.5) HEMATOCRIT 40.8 L % (41.0-53.0) MEAN CELL VOLUME 100 fL (80-100) MEAN CORPUSCULAR HGB 32 pg (26-34) MEAN CORPUSCULAR HGB CONC 32 g/dL (31-37) RED CELL DISTRIBUTION WIDTH 13.8 % (11.6-14.8) PLATELET COUNT 143 L K/uL (150-400) LYMPH % 37.3 % (25-40) MONO % 3.9 % (3-14) GRANULOCYTE % 58.8 Urine Drug Screen: (CIRA: 11/22/2016 06:47) ( MsgRcvd 11/22/2016 07:23) Final results Test Result Flag Units (Reference) AMPHETAMINE/METHAMPHETAMINE POSITIVE H (NEGATIVE) BARBITURATE NEGATIVE (NEGATIVE) BENZODIAZEPINE POSITIVE H (NEGATIVE) CANNABINOID POSITIVE H (NEGATIVE) COCAINE NEGATIVE (NEGATIVE) ECSTASY NEGATIVE (NEGATIVE) METHADONE NEGATIVE (NEGATIVE) OPIATE NEGATIVE (NEGATIVE) The urine drug screen is a qualitative screening test fordrug overdose and abuse. All screen results should beconsidered as presumptive.Drugs screened for are as follows:BenzodiazepinesCocaineAmphetamines/MetamphetaminesTHC (Tetrahydrocannabinol)OpiatesBarbituratesEcstasyMethadonePositive results are unconfirmed. For confirmation, notifythe lab for the specimen to be sent to the reference lab.All confirmations must be performed by a differentmethodology.The ingestion of natural herbal and plant productscontaining Ephedra/Ephedra metabolites can produce in urineone or more substances capable of cross reacting withamphetamine/methamphetamine immunoassays. These testsprovide a preliminary result only. A more specificalternative chemical method must be used to obtain aconfirmed analytical result. Lipase: (CIRA: 11/22/2016 00:01) ( MsgRcvd 11/22/2016 00:53) Final results Test Result Flag Units (Reference) LIPASE 277 U/L (73-393) AMYLASE 56 U/L (25-115) ETHYL ALCOHOL 307 H mg/dL (3-10) CHEM 13 PANEL: (CIRA: 11/22/2016 00:01) ( MsgRcvd 11/22/2016 01:10) Final results Test Result Flag Units (Reference) GLUCOSE 94 mg/dL (70-110) BUN 6 L mg/dL (7-18) CREATININE 0.8 mg/dL (0.6-1.3) Estimated GFR >60 mL/min Estimated GFR- >60 mL/min Note: Persistent reduction over 3 months in eGFR<60 mL/min/1.73 m2 defines CKD. Patients with eGFR values>=60 mL/min/1.73 m2 may also have CKD if evidence ofpersistent proteinuria. Additional information may be foundat www.kidney.org. SODIUM 146 H mmol/L (136-145) POTASSIUM 3.2 L mmol/L (3.5-5.1) CHLORIDE 109 H mmol/L (98-107) CARBON DIOXIDE 25 mmol/L (21-32) CALCIUM 8.0 L mg/dL (8.5-10.1) TOTAL PROTEIN 7.0 g/dL (6.4-8.2) ALBUMIN 2.5 L g/dL (3.3-5.0) BILIRUBIN, TOTAL 1.7 H mg/dL (0.0-1.0) ALKALINE PHOSPHATASE 218 H U/L (46-116) AST (SGOT) 325 H U/L (15-37) ALT (SGPT) 55 U/L (12-78) CPK 406 H U/L (24-260) MAGNESIUM 1.8 mg/dL (1.8-2.4) CK-MB 2.4 ng/mL (0.5-3.2) %CKMB 0.6 % (0.0-4.0) TROPONIN I 0.19 ng/mL (0.00-1.5) TROPONIN REFERENCE RANGE:<0.1 NEGATIVE0.1-1.5 INDETERMINANT>1.5 POSITIVE . PROGRESS AND PROCEDURES Course of Care: patient had been violent with the police so placed in handcuffs and brought to the ER. Patient was put in 4-point restraints on arrival. Patient was observed and monitored. Alcohol level initially 307 and 2 hours ago checked and decreased to 150. patient will need psych eval prior to discharge. patient sobered up. call to crisis counselor placed. Patient evaluated and not found to be a danger to self or others. No suicidal ideations or homicidal ideations. No active hallucinations or delusions. Patient requesting to leave to be able to catch the bus. Patient is alter and oriented to self, place, situation, and time. Patient had breakfast and did well. No other concerns. Do not feel this is infectious in etiology. Likely substance induced. Discussed with patient his work up here in the ED including diagnosis, home care ,follow up, and return precautions. All questions answered. Patient expressed understanding of these instructions and was agreeable to them. Disposition: Discharged. Condition: good. CLINICAL IMPRESSION 11/22/2016 11:17 BP: 153/98. HR: 117. RR: 20. O2 saturation: 100%. Adjustment disorder with depressed mood (acute). Hypertensive. Oxygen saturation normal. Substance abuse- alcohol, cocaine and methamphetamines. INSTRUCTIONS Warnings: GENERAL WARNINGS: Return or contact your physician immediately if your condition worsens or changes unexpectedly, if not improving as expected, or if other problems arise. Specifically return if pain, vomiting, bleeding, breathing difficulty or fever. symptoms return. Your Current Medications: CONTINUE TAKING THE FOLLOWING MEDICATIONS: OLANZapine Oral. SEROquel Oral. Wellbutrin Oral. Follow-up: Return to the emergency department as needed. Follow up with your doctor in three days. Reason for referral: recheck today's concerns. Summary of care provided to patient via paper. Screening today revealed the patient's blood pressure to be in the normal range. The patient should follow up with a primary care provider for blood pressure management. Understanding of the discharge instructions verbalized by patient. (Electronically signed by Erik Bay Dr. 11/23/2016 22:11)
--- NOTE | 2016-11-22 15:50 | ED ORDER SUMMARY ---
..... Patient: MIKEY WATT OrderSheet [facility] VisitID: [id number] [address] [place] [address] 55y, M Registration Date/Time: 11/21/2016 ORDER SHEET Weight: 95.2 kg (estimated) Allergies: None GENERAL ORDERS: Cardiac Panel Stat (00:11/22/2016 Lanette PARRISH) (Ack 0:35 [facility]) (Collected 0:49 RMarsden R.N.) (2:12 [facility]) Amylase Urgent (00:11/22/2016 Lanette PARRISH) (Ack 0:35 [facility]) (Collected 0:49 RMarsden R.N.) (2:12 [facility]) Lipase Urgent (00:11/22/2016 Lanette PARRISH) (Ack 0:35 [facility]) (Collected 0:49 RMarsden R.N.) (2:12 [facility]) Urine Drug Screen Urgent (00:11/22/2016 Lanette PARRISH) (Ack 0:35 [facility]) (Collected 0:49 RMarsden R.N.) (6:54 [facility]) Ethyl Alcohol Urgent (00:11/22/2016 Lanette PARRISH) (Ack 0:35 [facility]) (Collected 0:49 RMarsden R.N.) (2:12 [facility]) MEDICATION ORDERS: IV FLUIDS: ORDER SHEET NOTES: [Electronically signed by Martita Le R.N. (11/23/2016)] [Electronically signed by Erik Bay Dr. (22:11 11/23/2016)] [Electronically locked/signed by Martita Le R.N. (11/23/2016)]
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
--- NOTE | 2016-11-22 15:50 | ED ORDER SUMMARY ---
..... Patient: MIKEY WATT OrderSheet [facility] VisitID: [id number] [address] [place] [address] 55y, M Registration Date/Time: 11/21/2016 ORDER SHEET Weight: 95.2 kg (estimated) Allergies: None GENERAL ORDERS: Cardiac Panel Stat (00:11/22/2016 Lanette PARRISH) (Ack 0:35 CHagerty ER Professional Engineer) (Collected 0:49 RMarsden R.N.) (2:12 CHagerty ER Professional Engineer) Amylase Urgent (00:11/22/2016 Lanette PARRISH) (Ack 0:35 CHagerty ER Professional Engineer) (Collected 0:49 RMarsden R.N.) (2:12 CHagerty ER Professional Engineer) Lipase Urgent (00:11/22/2016 Lanette PARRISH) (Ack 0:35 CHagerty ER Professional Engineer) (Collected 0:49 RMarsden R.N.) (2:12 CHagerty ER Professional Engineer) Urine Drug Screen Urgent (00:11/22/2016 Lanette PARRISH) (Ack 0:35 CHagerty ER Professional Engineer) (Collected 0:49 RMarsden R.N.) (6:54 CHagerty ER Professional Engineer) Ethyl Alcohol Urgent (00:11/22/2016 Lanette PARRISH) (Ack 0:35 CHagerty ER Professional Engineer) (Collected 0:49 RMarsden R.N.) (2:12 CHagerty ER Professional Engineer) MEDICATION ORDERS: IV FLUIDS: ORDER SHEET NOTES: [Electronically signed by Martita Le R.N. (11/23/2016)] [Electronically signed by Erik Bay Dr. (22:11 11/23/2016)] [Electronically locked/signed by Martita Le R.N. (11/23/2016)]
--- NOTE | 2016-11-23 22:11 | ED DISCHARGE INSTRUCTIONS ---
Patient: MIKEY WATT General Instructions [facility] VisitID: [id number] [address] [place] [address] 55y, M Registration Date/Time: 11/21/2016 11/22/2016 11:17 BP: 153/98. HR: 117. RR: 20. O2 saturation: 100%. Adjustment disorder with depressed mood (acute). Hypertensive. Oxygen saturation normal. Substance abuse- alcohol, cocaine and methamphetamines. INSTRUCTIONS Warnings: GENERAL WARNINGS: Return or contact your physician immediately if your condition worsens or changes unexpectedly, if not improving as expected, or if other problems arise. Specifically return if pain, vomiting, bleeding, breathing difficulty or fever. symptoms return. Your Current Medications: CONTINUE TAKING THE FOLLOWING MEDICATIONS: OLANZapine Oral. SEROquel Oral. Wellbutrin Oral. Follow-up: Return to the emergency department as needed. Follow up with your doctor in three days. Reason for referral: recheck today's concerns. Summary of care provided to patient via paper. Screening today revealed the patient's blood pressure to be in the normal range. The patient should follow up with a primary care provider for blood pressure management. Understanding of the discharge instructions verbalized by patient. ADDITIONAL INFORMATION Adjustment Disorder An adjustment disorder is a condition that results from having a hard time coping with the normal stresses of life. You may feel you have too much to do and cant get it all done. These feelings may be triggered by divorce, job loss, someone you know dying, or by a positive event like getting a new job or getting . These feelings may interfere with your relationships at home and at work. With this condition, it is common to feel sad, guilty, hopeless and restless. These feelings may continue for weeks or months. It can be helpful to identify what is causing the additional stress and takes steps to get extra support. If new stressful events do not occur, it is likely that you will start feeling better within six months. Home Care: If you have been given a prescription for medicine, take it as directed. It helps to talk about your feelings and thoughts with family or friends that understand and support you. Follow Up with your doctor or therapist as advised by our staff. Let them know if this condition lasts more than six months without sign of improvement. For more information, contact the National [place] on Mental Illness at 522-954-1008 or visit www.bridgette.org. Get Prompt Medical Attention if any of the following occur: Worsening depression or anxiety Feeling out of control Thoughts of harming yourself or another Being unable to care for yourself Alcohol Intoxication Alcohol intoxication occurs when you drink alcohol faster than your liver can remove it from your system. Alcohol intoxication affects your judgment and coordination. Very high blood alcohol levels can cause coma, very slow breathing and even . If you drink alcohol every day, this may gradually cause permanent damage to your liver, brain, heart, pancreas and other organs. Alcohol use during may cause permanent damage to the growing baby. Home Care: Do not drink any more alcohol. DO NOT DRIVE until all effects of the alcohol have worn off. Get lots of rest over the next few days. Drink plenty of water and other non-alcoholic liquids. Try to eat regular meals. If you have been drinking heavily on a daily basis, you may go through alcohol withdrawl. This is also called the shakes or DTs. The usual symptoms last 3 to 4 days and may include nervousness, shakiness, nausea, sweating or sleeplessness. During this time, it is best that you stay with family or friends who can help and support you. You can also admit yourself to a residential detox program. If your symptoms are severe, contact your doctor for medicines to help. Follow Up: If alcohol is causing a problem in your life, these and other organizations can help you: Alcoholics Anonymous offers support through a self-help fellowship. There are no dues or fees. See the Yellow Pages and call for time and place of meetings. www.aa.org [place] offers support to families of alcohol users. 661.181.7679 www.al-anon.org National [place] On Alcoholism And Drug Dependence 519-472-9259 www.ncadd.org There are also inpatient or residential alcohol detox programs. Check the Internet or phonebook Yellow Pages under Drug Abuse & Treatment Centers. Get Prompt Medical Attention if any of the following occur: there) Cocaine and Crack Abuse Cocaine is typically snorted or injected intravenously (IV).Crack is made from cocaine, and can be smoked, causing a more potent effect. Cocaine causes a very powerful psychological dependence. Once you have a psychological dependence, you will do just about anything to get the drug and recreate the feeling it produces. This can increase your risk for any of the following: Overdose that may lead to Loss of your job, your home, your family Accidental injuries to yourself or others while you are under the influence of the drug (in a car or at home) Arrest, conviction and fci sentence for possession of an illegal substance or for driving under the influence Medically, cocaine can affect every organ in your body.It can cause: Chest pain, arrhythmia (abnormal heart beating), heart attack Severe headache, seizures, loss of consciousness, stroke Anxiety, psychosis, confusion Nasal damage (from snorting) Chronic bronchitis (from smoking), shortness of breath HIV infection, Hepatitis B or C, heart infection (from IV use) Kidney failure Home Care: Admit you have a drug problem. Ask for help from your family and close friends. Seek psychotherapy or counseling if depression or anxiety is a problem for you. Join a self-help group for drug abuse. Avoid friends who abuse drugs themselves or tempt you to continue abusing the drug. Eat a balanced diet and begin a regular exercise program. If you continue to use IV cocaine, decrease your risk of receiving or spreading infection by: Only using sterile equipment Do not reuse or share equipment Clean the skin before injecting Follow Up With Your Doctor Or As Advised By Our Staff. Contact One Of The Resources Below For Help. National [place] on Alcoholism and Drug Dependence 041-483-SSWX www.ncadd.org Narcotics Anonymous www.na.org National Alcohol and Substance Abuse Information Center (can tell you about the drug treatment programs in your area) 856.739.6604 www.addictioncareoptions.com Return Promptly Or Contact Your Doctor If Any Of The Following Occurs: Chest, arm, neck or upper back pain Shortness of breath, dizziness, weakness, passing out Agitation, anxiety, unable to sleep Unintended weight loss (more than 10-15 pounds over 6 months) Hallucination, severe depression, thoughts of harming yourself or another Severe headache, seizure; numbness or weakness of the face, one arm or one leg Slurred speech, confusion, trouble speaking, walking or seeing Fever of 100.4F(38C) or higher, or as directed by your healthcare provider Redness, pain or swelling at an injection site Loss of vision or decreased vision You have been given the following additional information: Adjustment Disorder Alcohol Intoxication Cocaine And Crack Abuse (Electronically signed by Erik Bay Dr. 11/23/2016 22:11)
--- NOTE | 2016-11-23 22:11 | ED MAR SUMMARY ---
..... Medication Administration Record [facility] [address] [place] [id number] Patient: MIKEY WATT Visit ID: [id number] 55y, M Weight: 95.2 kg Height/Length: 71 in BMI: 29.3 ALLERGIES: None
--- NOTE | 2016-11-23 22:11 | ED MED RECONCILIATION SUMMARY ---
Patient: MIKEY WATT Medication Reconciliation Report [facility] VisitID: [id number] [address] [place] [address] 55y, M Registration Date/Time: 11/21/2016 Weight: 95.2 kg Height/Length: 71 in. BMI: 29.3 ALLERGIES: None The patient's Home Medications are listed below: CONTINUE TAKING THE FOLLOWING MEDICATIONS: OLANZapine Oral SEROquel Oral Wellbutrin Oral The source(s) of the original Home Medication information: Not obtained. The following Medications were given to the patient in the Emergency Department: None. The following Medications were prescribed to the patient: None.
--- NOTE | 2016-11-23 22:11 | ED DISCHARGE INSTRUCTIONS ---
Patient: MIKEY WATT General Instructions [facility] VisitID: [id number] [address] [place] [address] 55y, M Registration Date/Time: 11/21/2016 11/22/2016 11:17 BP: 153/98. HR: 117. RR: 20. O2 saturation: 100%. Adjustment disorder with depressed mood (acute). Hypertensive. Oxygen saturation normal. Substance abuse- alcohol, cocaine and methamphetamines. INSTRUCTIONS Warnings: GENERAL WARNINGS: Return or contact your physician immediately if your condition worsens or changes unexpectedly, if not improving as expected, or if other problems arise. Specifically return if pain, vomiting, bleeding, breathing difficulty or fever. symptoms return. Your Current Medications: CONTINUE TAKING THE FOLLOWING MEDICATIONS: OLANZapine Oral. SEROquel Oral. Wellbutrin Oral. Follow-up: Return to the emergency department as needed. Follow up with your doctor in three days. Reason for referral: recheck today's concerns. Summary of care provided to patient via paper. Screening today revealed the patient's blood pressure to be in the normal range. The patient should follow up with a primary care provider for blood pressure management. Understanding of the discharge instructions verbalized by patient. ADDITIONAL INFORMATION Adjustment Disorder An adjustment disorder is a condition that results from having a hard time coping with the normal stresses of life. You may feel you have too much to do and cant get it all done. These feelings may be triggered by divorce, job loss, someone you know dying, or by a positive event like getting a new job or getting . These feelings may interfere with your relationships at home and at work. With this condition, it is common to feel sad, guilty, hopeless and restless. These feelings may continue for weeks or months. It can be helpful to identify what is causing the additional stress and takes steps to get extra support. If new stressful events do not occur, it is likely that you will start feeling better within six months. Home Care: If you have been given a prescription for medicine, take it as directed. It helps to talk about your feelings and thoughts with family or friends that understand and support you. Follow Up with your doctor or therapist as advised by our staff. Let them know if this condition lasts more than six months without sign of improvement. For more information, contact the National [place] on Mental Illness at 696-295-9560 or visit www.bridgette.org. Get Prompt Medical Attention if any of the following occur: Worsening depression or anxiety Feeling out of control Thoughts of harming yourself or another Being unable to care for yourself Alcohol Intoxication Alcohol intoxication occurs when you drink alcohol faster than your liver can remove it from your system. Alcohol intoxication affects your judgment and coordination. Very high blood alcohol levels can cause coma, very slow breathing and even . If you drink alcohol every day, this may gradually cause permanent damage to your liver, brain, heart, pancreas and other organs. Alcohol use during may cause permanent damage to the growing baby. Home Care: Do not drink any more alcohol. DO NOT DRIVE until all effects of the alcohol have worn off. Get lots of rest over the next few days. Drink plenty of water and other non-alcoholic liquids. Try to eat regular meals. If you have been drinking heavily on a daily basis, you may go through alcohol withdrawl. This is also called the shakes or DTs. The usual symptoms last 3 to 4 days and may include nervousness, shakiness, nausea, sweating or sleeplessness. During this time, it is best that you stay with family or friends who can help and support you. You can also admit yourself to a residential detox program. If your symptoms are severe, contact your doctor for medicines to help. Follow Up: If alcohol is causing a problem in your life, these and other organizations can help you: Alcoholics Anonymous offers support through a self-help fellowship. There are no dues or fees. See the Yellow Pages and call for time and place of meetings. www.aa.org [place] offers support to families of alcohol users. 573.594.8475 www.al-anon.org National [place] On Alcoholism And Drug Dependence 184-630-4881 www.ncadd.org There are also inpatient or residential alcohol detox programs. Check the Internet or phonebook Yellow Pages under Drug Abuse & Treatment Centers. Get Prompt Medical Attention if any of the following occur: there) Cocaine and Crack Abuse Cocaine is typically snorted or injected intravenously (IV).Crack is made from cocaine, and can be smoked, causing a more potent effect. Cocaine causes a very powerful psychological dependence. Once you have a psychological dependence, you will do just about anything to get the drug and recreate the feeling it produces. This can increase your risk for any of the following: Overdose that may lead to Loss of your job, your home, your family Accidental injuries to yourself or others while you are under the influence of the drug (in a car or at home) Arrest, conviction and longterm sentence for possession of an illegal substance or for driving under the influence Medically, cocaine can affect every organ in your body.It can cause: Chest pain, arrhythmia (abnormal heart beating), heart attack Severe headache, seizures, loss of consciousness, stroke Anxiety, psychosis, confusion Nasal damage (from snorting) Chronic bronchitis (from smoking), shortness of breath HIV infection, Hepatitis B or C, heart infection (from IV use) Kidney failure Home Care: Admit you have a drug problem. Ask for help from your family and close friends. Seek psychotherapy or counseling if depression or anxiety is a problem for you. Join a self-help group for drug abuse. Avoid friends who abuse drugs themselves or tempt you to continue abusing the drug. Eat a balanced diet and begin a regular exercise program. If you continue to use IV cocaine, decrease your risk of receiving or spreading infection by: Only using sterile equipment Do not reuse or share equipment Clean the skin before injecting Follow Up With Your Doctor Or As Advised By Our Staff. Contact One Of The Resources Below For Help. National [place] on Alcoholism and Drug Dependence 995-908-GXXT www.ncadd.org Narcotics Anonymous www.na.org National Alcohol and Substance Abuse Information Center (can tell you about the drug treatment programs in your area) 881.793.8967 www.addictioncareoptions.com Return Promptly Or Contact Your Doctor If Any Of The Following Occurs: Chest, arm, neck or upper back pain Shortness of breath, dizziness, weakness, passing out Agitation, anxiety, unable to sleep Unintended weight loss (more than 10-15 pounds over 6 months) Hallucination, severe depression, thoughts of harming yourself or another Severe headache, seizure; numbness or weakness of the face, one arm or one leg Slurred speech, confusion, trouble speaking, walking or seeing Fever of 100.4F(38C) or higher, or as directed by your healthcare provider Redness, pain or swelling at an injection site Loss of vision or decreased vision You have been given the following additional information: Adjustment Disorder Alcohol Intoxication Cocaine And Crack Abuse (Electronically signed by Erik Bay Dr. 11/23/2016 22:11)
--- NOTE | 2016-11-23 22:11 | ED MAR SUMMARY ---
..... Medication Administration Record [facility] [address] [place], [place] [id number] Patient: MIKEY WATT Visit ID: [id number] 55y, M Weight: 95.2 kg Height/Length: 71 in BMI: 29.3 ALLERGIES: None
--- NOTE | 2016-11-23 22:11 | ED MED RECONCILIATION SUMMARY ---
Patient: MIKEY WATT Medication Reconciliation Report [facility] VisitID: [id number] [address] [place] [address] 55y, M Registration Date/Time: 11/21/2016 Weight: 95.2 kg Height/Length: 71 in. BMI: 29.3 ALLERGIES: None The patient's Home Medications are listed below: CONTINUE TAKING THE FOLLOWING MEDICATIONS: OLANZapine Oral SEROquel Oral Wellbutrin Oral The source(s) of the original Home Medication information: Not obtained. The following Medications were given to the patient in the Emergency Department: None. The following Medications were prescribed to the patient: None.
== END 2016-11-22 16:00 | disposition home or self-care (01) ==
LOC: ED SRH 23:01
DX: F43.21 Adjustment disorder with depressed mood (principal); F10.10 Alcohol abuse, uncomplicated; F15.10 Other stimulant abuse, uncomplicated; F14.10 Cocaine abuse, uncomplicated; I10 Essential (primary) hypertension; F20.9 Schizophrenia, unspecified; Z79.899 Other long term (current) drug therapy
CPT/HCPCS: 90074; 90100; 90616; 90617; 92010; 92235; 92530; 92610; 92720; 92760; 92761; 92762; 92763; 92764; 92765; 92766; 92767; 95059

== ENCOUNTER 2016-12-12 20:50 | Emergency (ER) | payer OTHER ==
--- NOTE | 2016-12-12 21:30 | ED ORDER SUMMARY ---
..... Patient: MIKEY WATT OrderSheet [facility] VisitID: [id number] [address] [place] [address] 55y, M Registration Date/Time: 12/12/2016 ORDER SHEET Weight: 95 kg (estimated) Allergies: None GENERAL ORDERS: Dress Wounds (please clean and dress abrasions with bacitracin) (21:28 12/12/2016 Noa CHAVEZ) MEDICATION ORDERS: IV FLUIDS: ORDER SHEET NOTES: [Electronically signed by Nilo Powell DO (22:19 12/12/2016)] [Electronically signed by Alejandra Flores R.N. (00:07 12/14/2016)] [Electronically locked/signed by Alejandra Flores R.N. (00:07 12/14/2016)]
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
--- NOTE | 2016-12-12 21:30 | ED ORDER SUMMARY ---
..... Patient: MIKEY WATT OrderSheet [facility] VisitID: [id number] [address] [place] [address] 55y, M Registration Date/Time: 12/12/2016 ORDER SHEET Weight: 95 kg (estimated) Allergies: None GENERAL ORDERS: Dress Wounds (please clean and dress abrasions with bacitracin) (21:28 12/12/2016 Noa CHAVEZ) MEDICATION ORDERS: IV FLUIDS: ORDER SHEET NOTES: [Electronically signed by Nilo Powell DO (22:19 12/12/2016)] [Electronically signed by Alejandra Flores R.N. (00:07 12/14/2016)] [Electronically locked/signed by Alejandra Flores R.N. (00:07 12/14/2016)]
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
--- NOTE | 2016-12-12 21:30 | ED NURSING NOTES ---
Clinical Report - Nurses [facility] [address] [place] [address] 12/12/2016 20:50 Patient: MIKEY WATT TRIAGE Triage time 20:53 Dec 12 2016. Chief Complaint: (clear to book). Alert. No acute distress. --20:58 Alejandra Flores R.N. 20:53 12/12/16. BP: 142/94. HR: 126. Temp: 98.4 F. Additional comments: unable to get o2 sats and resp as pt would not allow this. --20:58 Alejandra Flores R.N. Acuity: LEVEL 3. --20:58 Alejandra Flores R.N. Weight: 95 kg estimated. Height/Length: 71 inches Estimated. BMI: 29.2. --21:40 Alejandra Flores R.N. Medications OLANZapine Oral. SEROquel Oral. Wellbutrin Oral. --20:55 Alejandra Flores R.N. Allergies None. --20:55 Alejandra Flores R.N. History Historian: police. Arrived in police custody. This started today. ( abrasions). 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 PAST MEDICAL HX: Immunizations: up-to-date. SOCIAL HX: Never smoker. Heavy alcohol use. Patient smells of ETOH in the emergency department. History of drug use: marijuana. No infectious disease exposure. SELF HARM ASSESSMENT: A self harm assessment was performed. The patient answered "yes" to the question "Do you have thoughts of harming or killing yourself?" and "no" to the question "Have you recently had thoughts about harming or killing others?". ABUSE ASSESSMENT: Abuse assessment: (pt states that he is not safe) The patient was asked "Do you feel safe in your home?". --20:58 Alejandra Flores R.N. PROBLEMS: Substance Abuse. Adjustment Disorder. Mental Illness. Abnormal Liver Function Test. Contusion. Laceration. Fall. Lifestyle / Substance Problems. Depression. PTSD. Schizophrenia. Asthma. Corneal Foreign Body. Immunizations. Alcoholism. Back Pain. Alcohol Intoxication. Hematoma. Dental Pain. Insect Bite(s). Tetanus Status. Hypertension. Anxiety Reaction. --20:55 Alejandra Flores R.N. ADDITIONAL SURGERIES: Carpal Tunnel Surgery. Right foot repair. --20:55 Alejandra Flores R.N. Interventions ID band on patient. To room. --20:58 Alejandra Flores R.N. PHYSICAL ASSESSMENT GENERAL / NEURO / PSYCH: Alert. Mood/affect abnormal (anxious, restless and agitated). HEENT: Mucous membranes are pink. RESPIRATORY: Respirations not labored. CVS: Capillary refill less than 2 seconds. GI / : Abdomen soft. Abdominal tenderness in the right upper quadrant. SKIN: Skin is warm. --20:59 Alejandra Flores R.N. NURSING PROGRESS NOTES Head of bed elevated. Patient identifiers checked. Side rails up. Safety measures: (police at bedside). Bed placed in lowest position. Brakes of bed on. --21:00 Alejandra Flores R.N. BREATHALYZER: Breathalyzer (.247). --21:06 Alejandra Flores R.N. DISPOSITION / DISCHARGE Departure time: 21:39 Dec 12 2016. Condition at departure: unchanged. No learning barriers present. Discharge instructions provided and reviewed with the patient. Reviewed referral to a primary care physician for followup. Patient verbalized understanding. Written instructions provided in Thai. The patient was discharged to police department facility and accompanied by a police escort. He left the Emergency Department ambulatory and via police department vehicle. Driving (police). FALL RISK ASSESSMENT: Fall risk assessment completed. No fall risk identified. --21:40 Alejandra Flores R.N. 21:38 12/12/16. BP: 107/88. HR: 70. RR: 16. O2 saturation: 93%. Pain level now: 0/10. --21:40 Alejandra Flores R.N. Locked/Released at 12/14/2016 0:07 by Alejandra Flores R.N.
--- NOTE | 2016-12-12 21:30 | ED NURSING NOTES ---
Clinical Report - Nurses [facility] [address] [place] [address] 12/12/2016 20:50 Patient: MIKEY WATT TRIAGE Triage time 20:53 Dec 12 2016. Chief Complaint: (clear to book). Alert. No acute distress. --20:58 Alejandra Flores R.N. 20:53 12/12/16. BP: 142/94. HR: 126. Temp: 98.4 F. Additional comments: unable to get o2 sats and resp as pt would not allow this. --20:58 Alejandra Flores R.N. Acuity: LEVEL 3. --20:58 Alejandra Flores R.N. Weight: 95 kg estimated. Height/Length: 71 inches Estimated. BMI: 29.2. --21:40 Alejandra Flores R.N. Medications OLANZapine Oral. SEROquel Oral. Wellbutrin Oral. --20:55 Alejandra Flores R.N. Allergies None. --20:55 Alejandra Flores R.N. History Historian: police. Arrived in police custody. This started today. ( abrasions). 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 PAST MEDICAL HX: Immunizations: up-to-date. SOCIAL HX: Never smoker. Heavy alcohol use. Patient smells of ETOH in the emergency department. History of drug use: marijuana. No infectious disease exposure. SELF HARM ASSESSMENT: A self harm assessment was performed. The patient answered "yes" to the question "Do you have thoughts of harming or killing yourself?" and "no" to the question "Have you recently had thoughts about harming or killing others?". ABUSE ASSESSMENT: Abuse assessment: (pt states that he is not safe) The patient was asked "Do you feel safe in your home?". --20:58 Alejandra Flores R.N. PROBLEMS: Substance Abuse. Adjustment Disorder. Mental Illness. Abnormal Liver Function Test. Contusion. Laceration. Fall. Lifestyle / Substance Problems. Depression. PTSD. Schizophrenia. Asthma. Corneal Foreign Body. Immunizations. Alcoholism. Back Pain. Alcohol Intoxication. Hematoma. Dental Pain. Insect Bite(s). Tetanus Status. Hypertension. Anxiety Reaction. --20:55 Alejandra Flores R.N. ADDITIONAL SURGERIES: Carpal Tunnel Surgery. Right foot repair. --20:55 Alejandra Flores R.N. Interventions ID band on patient. To room. --20:58 Alejandra Flores R.N. PHYSICAL ASSESSMENT GENERAL / NEURO / PSYCH: Alert. Mood/affect abnormal (anxious, restless and agitated). HEENT: Mucous membranes are pink. RESPIRATORY: Respirations not labored. CVS: Capillary refill less than 2 seconds. GI / : Abdomen soft. Abdominal tenderness in the right upper quadrant. SKIN: Skin is warm. --20:59 Alejandra Flores R.N. NURSING PROGRESS NOTES Head of bed elevated. Patient identifiers checked. Side rails up. Safety measures: (police at bedside). Bed placed in lowest position. Brakes of bed on. --21:00 Alejandra Flores R.N. BREATHALYZER: Breathalyzer (.247). --21:06 Alejandra Flores R.N. DISPOSITION / DISCHARGE Departure time: 21:39 Dec 12 2016. Condition at departure: unchanged. No learning barriers present. Discharge instructions provided and reviewed with the patient. Reviewed referral to a primary care physician for followup. Patient verbalized understanding. Written instructions provided in Syriac. The patient was discharged to police department facility and accompanied by a police escort. He left the Emergency Department ambulatory and via police department vehicle. Driving (police). FALL RISK ASSESSMENT: Fall risk assessment completed. No fall risk identified. --21:40 Alejandra Flores R.N. 21:38 12/12/16. BP: 107/88. HR: 70. RR: 16. O2 saturation: 93%. Pain level now: 0/10. --21:40 Alejandra Flores R.N. Locked/Released at 12/14/2016 0:07 by Alejandra Flores R.N.
--- NOTE | 2016-12-14 00:07 | ED MED RECONCILIATION SUMMARY ---
Patient: MIKEY WATT Medication Reconciliation Report [facility] VisitID: [id number] [address] [place] [address] 55y, M Registration Date/Time: 12/12/2016 Weight: 95 kg Height/Length: 71 in. BMI: 29.2 ALLERGIES: None The patient's Home Medications are listed below: CONTINUE TAKING THE FOLLOWING MEDICATIONS: OLANZapine Oral SEROquel Oral Wellbutrin Oral The source(s) of the original Home Medication information: Not obtained. The following Medications were given to the patient in the Emergency Department: None. The following Medications were prescribed to the patient: None.
--- NOTE | 2016-12-14 00:07 | ED DISCHARGE INSTRUCTIONS ---
Patient: MIKEY WATT General Instructions [facility] VisitID: [id number] [place] [address] 55y, M Registration Date/Time: 12/12/2016 Uncomplicated alcohol intoxication with alcohol dependence. Abrasion to the right elbow, right forearm, right knee and right lower leg and left elbow, left forearm, left knee and left lower leg. INSTRUCTIONS ( Medically clear to book into custodial). Drink plenty of fluids. Warnings: Further evaluation is necessary. GENERAL WARNINGS: Return or contact your physician immediately if your condition worsens or changes unexpectedly, if not improving as expected, or if other problems arise. Your Current Medications: CONTINUE TAKING THE FOLLOWING MEDICATIONS: OLANZapine Oral. SEROquel Oral. Wellbutrin Oral. Follow-up: Follow up with your doctor in about three days. ADDITIONAL INFORMATION Alcohol Intoxication Alcohol intoxication occurs when you drink alcohol faster than your liver can remove it from your system. Alcohol intoxication affects your judgment and coordination. Very high blood alcohol levels can cause coma, very slow breathing and even . If you drink alcohol every day, this may gradually cause permanent damage to your liver, brain, heart, pancreas and other organs. Alcohol use during may cause permanent damage to the growing baby. Home Care: Do not drink any more alcohol. DO NOT DRIVE until all effects of the alcohol have worn off. Get lots of rest over the next few days. Drink plenty of water and other non-alcoholic liquids. Try to eat regular meals. If you have been drinking heavily on a daily basis, you may go through alcohol withdrawl. This is also called the shakes or DTs. The usual symptoms last 3 to 4 days and may include nervousness, shakiness, nausea, sweating or sleeplessness. During this time, it is best that you stay with family or friends who can help and support you. You can also admit yourself to a residential detox program. If your symptoms are severe, contact your doctor for medicines to help. Follow Up: If alcohol is causing a problem in your life, these and other organizations can help you: Alcoholics Anonymous offers support through a self-help fellowship. There are no dues or fees. See the Yellow Pages and call for time and place of meetings. www.aa.org [place] offers support to families of alcohol users. 164-484-7042 www.al-anon.org National [place] On Alcoholism And Drug Dependence 511-716-9085 www.ncadd.org There are also inpatient or residential alcohol detox programs. Check the Internet or phonebook Yellow Pages under Drug Abuse & Treatment Centers. Get Prompt Medical Attention if any of the following occur: there) Abrasions Abrasions are skin scrapes. Their treatment depends on how large and deep the abrasion is. Home Care: If you were given a bandage, change it once a day. If your bandage sticks to the wound, soak it in warm water until it loosens. Wash the area with soap and water to remove all the cream/ointment. You may do this in a sink, under a tub faucet or shower. Rinse off the soap and pat dry with a clean towel. Reapply cream/ointment according to your doctor's instructions. This will prevent infection and help prevent the bandage from sticking. Cover the wound with a fresh non-stick bandage (Telfa). Repeat steps 1 to 4 daily, or as directed by your doctor. If the bandage becomes wet or dirty, change it as soon as possible. You may use acetaminophen (Tylenol) or ibuprofen (Motrin, Advil) to control pain, unless another pain medicine was prescribed. [ NOTE : If you have chronic liver or kidney disease or ever had a stomach ulcer or GI bleeding, talk with your doctor before using these medicines.] Do not use ibuprofen in children under six months of age. Follow Up with your physician or this facility as directed by our staff. Most skin wounds heal within ten days. However, an infection may occur despite proper treatment. Therefore, look for the early signs of infection listed below. Get Prompt Medical Attention if any of the following occur: Increasing pain in the wound Increasing redness or swelling Pus coming from the wound Fever of 100.4F (38C) or higher, or as directed by your healthcare provider You have been given the following additional information: Alcohol Intoxication Abrasion ( Medically clear to book into custodial). (Electronically signed by Nilo Powell DO 12/12/2016 22:19)
--- NOTE | 2016-12-14 00:07 | ED MAR SUMMARY ---
..... Medication Administration Record [facility] [address] [place] [id number] Patient: MIKEY WATT Visit ID: [id number] 55y, M Weight: 95.0 kg Height/Length: 71 in BMI: 29.2 ALLERGIES: None
--- NOTE | 2016-12-14 00:07 | ED DISCHARGE INSTRUCTIONS ---
Patient: MIKEY WATT General Instructions [facility] VisitID: [id number] [place] [address] 55y, M Registration Date/Time: 12/12/2016 Uncomplicated alcohol intoxication with alcohol dependence. Abrasion to the right elbow, right forearm, right knee and right lower leg and left elbow, left forearm, left knee and left lower leg. INSTRUCTIONS ( Medically clear to book into alf). Drink plenty of fluids. Warnings: Further evaluation is necessary. GENERAL WARNINGS: Return or contact your physician immediately if your condition worsens or changes unexpectedly, if not improving as expected, or if other problems arise. Your Current Medications: CONTINUE TAKING THE FOLLOWING MEDICATIONS: OLANZapine Oral. SEROquel Oral. Wellbutrin Oral. Follow-up: Follow up with your doctor in about three days. ADDITIONAL INFORMATION Alcohol Intoxication Alcohol intoxication occurs when you drink alcohol faster than your liver can remove it from your system. Alcohol intoxication affects your judgment and coordination. Very high blood alcohol levels can cause coma, very slow breathing and even . If you drink alcohol every day, this may gradually cause permanent damage to your liver, brain, heart, pancreas and other organs. Alcohol use during may cause permanent damage to the growing baby. Home Care: Do not drink any more alcohol. DO NOT DRIVE until all effects of the alcohol have worn off. Get lots of rest over the next few days. Drink plenty of water and other non-alcoholic liquids. Try to eat regular meals. If you have been drinking heavily on a daily basis, you may go through alcohol withdrawl. This is also called the shakes or DTs. The usual symptoms last 3 to 4 days and may include nervousness, shakiness, nausea, sweating or sleeplessness. During this time, it is best that you stay with family or friends who can help and support you. You can also admit yourself to a residential detox program. If your symptoms are severe, contact your doctor for medicines to help. Follow Up: If alcohol is causing a problem in your life, these and other organizations can help you: Alcoholics Anonymous offers support through a self-help fellowship. There are no dues or fees. See the Yellow Pages and call for time and place of meetings. www.aa.org [place] offers support to families of alcohol users. 600-774-3311 www.al-anon.org [employer] [place] On Alcoholism And Drug Dependence 704-226-2632 www.ncadd.org There are also inpatient or residential alcohol detox programs. Check the Internet or phonebook Yellow Pages under Drug Abuse & Treatment Centers. Get Prompt Medical Attention if any of the following occur: there) Abrasions Abrasions are skin scrapes. Their treatment depends on how large and deep the abrasion is. Home Care: If you were given a bandage, change it once a day. If your bandage sticks to the wound, soak it in warm water until it loosens. Wash the area with soap and water to remove all the cream/ointment. You may do this in a sink, under a tub faucet or shower. Rinse off the soap and pat dry with a clean towel. Reapply cream/ointment according to your doctor's instructions. This will prevent infection and help prevent the bandage from sticking. Cover the wound with a fresh non-stick bandage (Telfa). Repeat steps 1 to 4 daily, or as directed by your doctor. If the bandage becomes wet or dirty, change it as soon as possible. You may use acetaminophen (Tylenol) or ibuprofen (Motrin, Advil) to control pain, unless another pain medicine was prescribed. [ NOTE : If you have chronic liver or kidney disease or ever had a stomach ulcer or GI bleeding, talk with your doctor before using these medicines.] Do not use ibuprofen in children under six months of age. Follow Up with your physician or this facility as directed by our staff. Most skin wounds heal within ten days. However, an infection may occur despite proper treatment. Therefore, look for the early signs of infection listed below. Get Prompt Medical Attention if any of the following occur: Increasing pain in the wound Increasing redness or swelling Pus coming from the wound Fever of 100.4F (38C) or higher, or as directed by your healthcare provider You have been given the following additional information: Alcohol Intoxication Abrasion ( Medically clear to book into alf). (Electronically signed by Nilo Powell DO 12/12/2016 22:19)
--- NOTE | 2016-12-14 00:07 | ED MED RECONCILIATION SUMMARY ---
Patient: MIKEY WATT Medication Reconciliation Report [facility] VisitID: [id number] [address] [place] [address] 55y, M Registration Date/Time: 12/12/2016 Weight: 95 kg Height/Length: 71 in. BMI: 29.2 ALLERGIES: None The patient's Home Medications are listed below: CONTINUE TAKING THE FOLLOWING MEDICATIONS: OLANZapine Oral SEROquel Oral Wellbutrin Oral The source(s) of the original Home Medication information: Not obtained. The following Medications were given to the patient in the Emergency Department: None. The following Medications were prescribed to the patient: None.
--- NOTE | 2016-12-14 00:07 | ED MAR SUMMARY ---
..... Medication Administration Record [facility] [address] [place] [id number] Patient: MIKEY WATT Visit ID: [id number] 55y, M Weight: 95.0 kg Height/Length: 71 in BMI: 29.2 ALLERGIES: None
== END 2016-12-12 21:40 ==
LOC: ED SRH 20:50
DX: S50.312A Abrasion of left elbow, initial encounter (principal); S50.311A Abrasion of right elbow, initial encounter; S80.212A Abrasion, left knee, initial encounter; S80.211A Abrasion, right knee, initial encounter; S80.812A Abrasion, left lower leg, initial encounter; S80.811A Abrasion, right lower leg, initial encounter; S50.812A Abrasion of left forearm, initial encounter; F10.220 Alcohol dependence with intoxication, uncomplicated; S50.811A Abrasion of right forearm, initial encounter; Y04.0XXA Assault by unarmed brawl or fight, initial encounter